=== PATIENT | female | born 1955 | race Caucasian/White ===

== ENCOUNTER 2018-04-10 14:48 | Inpatient (IN) ==
[2018-04-10] MEDS ORDERED: Ondansetron 4 MG/2 ML VIAL IVP ONE (15:15)
[2018-04-10] MEDS ORDERED: 0.9 % Sodium Chloride 1,000 ML IVC ONE (15:15)
--- NOTE | 2018-04-10 15:51 | Emergency Department Note ---
Disposition Clinical Impression: Pancolitis Abdominal pain Qualifiers: Abdominal location: unspecified location Qualified Code(s): R10.9 - Unspecified abdominal pain Diarrhea Qualifiers: Diarrhea type: unspecified type Qualified Code(s): R19.7 - Diarrhea, unspecified Leukocytosis Qualifiers: Leukocytosis type: unspecified Qualified Code(s): D72.829 - Elevated white blood cell count, unspecified Disposition: Admitted As Inpatient Condition: Good Time of Disposition: 16:46 Abdominal Pain HPI - General Chief Complaint: ED Abdominal Pain Stated Complaint: diarrhea since January Time Seen by Provider: 04/10/18 15:07 Source: patient, family () Mode of arrival: ambulatory Limitations: no limitations Nursing Notes Reviewed: Yes Vital Signs Reviewed: Yes - History of Present Illness HPI Narrative: 62-year-old female presents to the emergency department for diarrhea. She reports intermittent diarrhea over the past 3 months. It seems to be worse after she takes antibiotics. Her recent antibiotic regimen was over a week ago with ciprofloxacin for sinus infection. For the past 7 days she is been having loose watery stools up to 10 episodes. Today she is only had 4 episodes. She reports tactile fevers. Has been feeling more nauseated and complains of abdominal pain over the past week. No recent travel. No recent hospitalizations. She does notice blood when she wipes. Denies any urinary symptoms. She has not been evaluated for this in the past. They are concern for possible c. diff as they have looked it up. She also sees pain management and has been taking her Vicodin on a daily basis without any missed doses. Abdominal surgeries include 3 hernia repairs, hysterectomy, cholecystectomy and appendectomy. Pt Subjective Complaint: abdominal pain Pain Scale: 7 - Related Data Home Medications Medication Instructions Recorded Confirmed Albuterol Sulfate [Ventolin Hfa] 18 gm IH DAILY 10/19/17 11/04/17 Alendronate Sodium 70 mg PO DAILY 10/19/17 11/04/17 Atorvastatin [Lipitor] 10 mg PO HS 10/19/17 11/04/17 Carvedilol [Coreg] 25 mg PO BID 10/19/17 11/04/17 Cyclosporine [Restasis] 1 each OP DAILY 10/19/17 11/04/17 Ezetimibe [Zetia] 10 mg PO DAILY 10/19/17 11/04/17 Gabapentin [Neurontin] 300 mg PO HS 10/19/17 11/04/17 HydrOXYzine Pamoate [Vistaril] 50 mg PO DAILY 10/19/17 11/04/17 Hydrocodone Bit/Homatrop Me-Br 1 each PO 1-3XD PRN 10/19/17 11/04/17 [Hydrocodone-Homatropine 5-1.5] Latanoprost [Xalatan] 2.5 ml OP DAILY 10/19/17 11/04/17 Lisinopril 30 mg PO DAILY 10/19/17 11/04/17 Metoprolol [Lopressor] 25 mg PO BID 10/19/17 11/04/17 Neomycin/Polymyxin B Sulf/Hc 7.5 ml OP DAILY 10/19/17 11/04/17 [Rjggiztu-Dmna-Zy Eye Drops] Nortriptyline [Pamelor] 10 mg PO HS 10/19/17 11/04/17 Nystatin [Nystatin Suspension] 100,000 units PO QID 10/19/17 11/04/17 Hartwick-3 Fatty Acids [Fish Oil] 300 mg PO DAILY 10/19/17 11/04/17 Ticagrelor [Brilinta] 90 mg PO DAILY 10/19/17 11/04/17 Previous Rx's Medication Instructions Recorded Ondansetron HCl [Zofran] 4 mg PO Q8HR PRN #90 tab 10/19/17 Prochlorperazine Maleate 10 mg PO Q8HR #60 tablet 10/19/17 [Compazine] Ciprofloxacin [Cipro] 500 mg PO BID #14 tablet 01/15/18 Phenazopyridine HCl [Pyridium] 200 mg PO TID #6 tab 01/15/18 Allergies Allergy/AdvReac Type Severity Reaction Status Date / Time duloxetine [From Cymbalta] Allergy Drowsy Verified 10/19/17 11:34 iodine Allergy Hives Verified 10/19/17 11:34 morphine Allergy hallucinati Verified 10/19/17 11:34 ons pregabalin [From Lyrica] Allergy decreased Verified 10/19/17 11:34 awareness Hydromorphone [From Dilaudid] AdvReac Hypotension Verified 10/19/17 11:34 rosuvastatin [From Crestor] AdvReac Muscle Pain Verified 10/19/17 11:34 All systems ED: reviewed and negative except as stated. Review of Systems: As Per HPI Constitutional: Reports: fever, weakness. Denies: chills ENT ED: Denies: congestion Cardiovascular: Denies: chest pain Respiratory: Denies: cough, dyspnea Gastrointestinal: Reports: abdominal pain, nausea, vomiting, diarrhea, hematochezia. Denies: hematemesis, melena Genitourinary: Denies: dysuria, hematuria Musculoskeletal: Denies: back pain Integumentary: Denies: rash, abrasion Neurological: Reports: weakness. Denies: numbness, confusion Abdominal Pain PMH - Past Medical History Medical history: Reports: arthritis, cancer, COPD, fibromyalgia, GERD, hyperlipidemia, hypertension, other Female Surgical History: Reports: appendectomy, cholecystectomy, herniorrhaphy, hysterectomy Psychiatric history: Reports: no psych history - Social History Smoking status: Current every day smoker Alcohol use: Reports: none Drug use: Reports: none Physical Exam - General Limitations: no limitations General appearance: alert, in no apparent distress - Head Head exam: atraumatic, normocephalic, normal inspection - Eye Eye exam: Present: normal appearance, PERRL, EOMI - ENT ENT exam: normal exam, normal oropharynx, mucous membranes dry, normal external ear exam - Neck Neck exam: Present: normal inspection, full ROM, trachea midline - Chest Chest inspection: Present: normal inspection, symmetric chest wall rise - Respiratory Respiratory exam: Present: normal lung sounds bilaterally. Absent: respiratory distress - Cardiovascular Cardiovascular exam: Present: regular rate, normal rhythm, normal heart sounds. Absent: systolic murmur, diastolic murmur - Abdominal Exam Abdominal exam: Present: soft, tenderness, guarding, hyperactive bowel sounds. Absent: Non-Tender, distention, rebound, rigidity Abdominal tenderness: Present: diffuse - Extremities Exam Extremities exam: Present: normal inspection, full ROM. Absent: tenderness, pedal edema - Back Exam Back exam: Present: normal inspection, full ROM. Absent: tenderness, CVA tenderness (R), CVA tenderness (L) - Neurological Exam Neurological exam: Present: alert, oriented X3 - Psychiatric Psychiatric exam: Present: normal affect, normal mood - Skin Skin exam: Present: warm, dry, intact, pallor Course Course Narrative: Patient presents with intermittent diarrhea over the past 3 months worse after antibiotic treatment. Concern for possible c. diff infection. Will check labs including CT imaging to evaluate for possible toxic megacolon. Also check basic labs. IV fluids as the patient does appears slightly dry. Zofran for nausea. - Reevaluation(s) Reevaluation #1: Patient's white blood cell count 39. Her electrolytes are within normal limits. CT scan is pending. Suspect this is likely antibiotic induced c. diff. Will obtain lactate blood cultures and treat her with oral vancomycin as this is severe form given the significantly elevated white blood cell count. Patient will require admission. Time: 16:44 - Consultations Consultation #1: Spoke with on-call hospitalist dereck Jean Baptiste to admit for abd pain, diarrhea, concern for C.diff, pancolitis. No further orders at this time. No stool sample provided yet. Patient has been placed in contact precautions. Time: 18:08 Vital Signs Temperature 98.1 F 04/10/18 15:03 Pulse Rate 112 04/10/18 15:03 Respiratory Rate 20 04/10/18 15:03 Blood Pressure 115/74 04/10/18 15:03 O2 Sat by Pulse Oximetry 93 04/10/18 15:03 Temperature 98.1 F 04/10/18 15:03 Pulse Rate 112 04/10/18 15:03 Respiratory Rate 20 04/10/18 15:03 Blood Pressure 115/74 04/10/18 15:03 O2 Sat by Pulse Oximetry 93 04/10/18 15:03 Oxygen Delivery Oxygen Delivery Room Air Abdominal Pain - MDM Narrative Medical decision making narrative: Patient was discussed with my attending physician who agrees with ED management and final disposition. They independently evaluated the patient. Please refer to their attestation to this encounter for additional information. This note was generated by [employer] voice recognition software and as a result grammatical or spelling errors may occur using this program. - Medical Records Medical records reviewed: Yes I reviewed the patient's medical records. - Lab Data Lab results reviewed: Yes I reviewed the patient's lab results. Result diagrams: 04/10/18 15:15 04/10/18 15:15 Lab Results 04/10/18 04/10/18 04/10/18 Range/Units 15:15 15:15 16:16 WBC 39.0 H* (4.3-11.1) K/mcL RBC 4.94 (3.82-4.97) M/mcL Hgb 15.1 (11.5-15.4) g/dL Hct 43.6 (35.3-44.9) % MCV 88.3 (83.0-100.0) fL MCH 30.6 (28.0-33.3) pg MCHC 34.6 (31.6-35.5) g/dL RDW 13.9 (11.5-14.5) % Plt Count 257 (140-400) K/mcL MPV 10.0 (9.4-12.4) fL Immature Gran % 1.3 (0-4) % Seg Neutrophils % 86.9 % Lymphocytes % 5.5 % Monocytes % 5.7 % Eosinophils % 0.2 % Basophils % 0.4 % Neutrophils # 33.9 H (1.6-8.9) K/mcL Lymphocytes # 2.2 (0.6-4.6) K/mcL Monocytes # 2.2 H (0.0-1.3) K/mcL Eosinophils # 0.1 (0.0-0.6) K/mcL Basophils # 0.2 (0.0-0.2) K/mcL Platelet Estimate Normal (Normal) Sodium 137 (136-145) mEq/L Potassium 3.4 L (3.5-5.1) mEq/L Chloride 103 (98-107) mEq/L Carbon Dioxide 24 (23-29) mEq/L BUN 17 (8-23) mg/dL Creatinine 0.97 (0.60-1.20) mg/dL Est GFR ( Amer) > 60 (> 60) Est GFR (Non-Af Amer) 58 L (> 60) BUN/Creatinine Ratio 18 (6-26) Glucose 109 H (70-105) mg/dL Calculated Osmolality 286 (280-300) Calcium 8.7 (8.6-10.3) mg/dL Total Bilirubin 0.8 (0.3-1.0) mg/dL Direct Bilirubin 0.2 (0.0-0.2) mg/dL Indirect Bilirubin 0.6 (0.0-1.2) mg/dL AST 12 L (13-39) Units/L ALT 13 (7-52) Units/L Alkaline Phosphatase 82 (34-104) Units/L Serum Total Protein 6.6 (6.4-8.9) g/dL Albumin 3.2 L (3.5-5.7) g/dL Globulin 3.4 (2.4-3.5) g/dL Albumin/Globulin Ratio 0.9 L (1.1-2.2) Lipase < 3 L (11-82) Units/L Urine Color Dark Yellow (Yellow) Urine Clarity Slightly Hazy (Clear) Urine pH 6.0 (5.0-8.0) pH Units Ur Specific Barrett 1.017 (1.010-1.025) Urine Protein >=300 H (Neg-Trace) mg/dL Urine Glucose (UA) Normal (Normal) mg/dL Urine Ketones Trace H (Negative) mg/dL Urine Blood Large H (Negative) Urine Nitrite Negative (Negative) Urine Bilirubin Small H (Negative) Urine Urobilinogen Normal (Normal) mg/dL Ur Leukocyte Esterase Trace H (Negative) Urine Microscopic RBC TNTC H (0-3) per hpf Urine Microscopic WBC 5-15 H (0-3) per hpf Ur Squamous Epith Cells Many H (None-Few) per lpf Ur Transition Epith Cell Few (None-Few) per hpf Ur Renal Epithelial Cell Few (None-Few) per hpf Urine Bacteria None Seen (None-Few) per hpf Hyaline Casts Few (None-Few) per lpf Granular Casts Few H (None Seen) per lpf Ur Culture Indicated? NO. A (NO) Specimen Rejected 04/10/18 Range/Units 17:06 WBC (4.3-11.1) K/mcL RBC (3.82-4.97) M/mcL Hgb (11.5-15.4) g/dL Hct (35.3-44.9) % MCV (83.0-100.0) fL MCH (28.0-33.3) pg MCHC (31.6-35.5) g/dL RDW (11.5-14.5) % Plt Count (140-400) K/mcL MPV (9.4-12.4) fL Immature Gran % (0-4) % Seg Neutrophils % % Lymphocytes % % Monocytes % % Eosinophils % % Basophils % % Neutrophils # (1.6-8.9) K/mcL Lymphocytes # (0.6-4.6) K/mcL Monocytes # (0.0-1.3) K/mcL Eosinophils # (0.0-0.6) K/mcL Basophils # (0.0-0.2) K/mcL Platelet Estimate (Normal) Sodium (136-145) mEq/L Potassium (3.5-5.1) mEq/L Chloride (98-107) mEq/L Carbon Dioxide (23-29) mEq/L BUN (8-23) mg/dL Creatinine (0.60-1.20) mg/dL Est GFR ( Amer) (> 60) Est GFR (Non-Af Amer) (> 60) BUN/Creatinine Ratio (6-26) Glucose (70-105) mg/dL Calculated Osmolality (280-300) Calcium (8.6-10.3) mg/dL Total Bilirubin (0.3-1.0) mg/dL Direct Bilirubin (0.0-0.2) mg/dL Indirect Bilirubin (0.0-1.2) mg/dL AST (13-39) Units/L ALT (7-52) Units/L Alkaline Phosphatase (34-104) Units/L Serum Total Protein (6.4-8.9) g/dL Albumin (3.5-5.7) g/dL Globulin (2.4-3.5) g/dL Albumin/Globulin Ratio (1.1-2.2) Lipase (11-82) Units/L Urine Color (Yellow) Urine Clarity (Clear) Urine pH (5.0-8.0) pH Units Ur Specific Barrett (1.010-1.025) Urine Protein (Neg-Trace) mg/dL Urine Glucose (UA) (Normal) mg/dL Urine Ketones (Negative) mg/dL Urine Blood (Negative) Urine Nitrite (Negative) Urine Bilirubin (Negative) Urine Urobilinogen (Normal) mg/dL Ur Leukocyte Esterase (Negative) Urine Microscopic RBC (0-3) per hpf Urine Microscopic WBC (0-3) per hpf Ur Squamous Epith Cells (None-Few) per lpf Ur Transition Epith Cell (None-Few) per hpf Ur Renal Epithelial Cell (None-Few) per hpf Urine Bacteria (None-Few) per hpf Hyaline Casts (None-Few) per lpf Granular Casts (None Seen) per lpf Ur Culture Indicated? (NO) Specimen Rejected Hemolyzed - Radiology Data Radiology results reviewed: Yes I reviewed the patient's radiology results. Abdomen/Pelvis CT 04/10/18 15:39 IMPRESSION: Diffuse colonic wall thickening and pericolonic inflammatory changes is consistent with pancolitis. Findings are likely infectious or inflammatory in etiology. D/ / 04/10/2018 17:14:00 Duane Su MD / melania Interpreting Provider: Duane Su MD Attestation Statement - Attestation Attestation: I, Ankur Du DO, examined this patient [id number] and my medical decision-making was reviewed with Rufus Osullivan DO , Resident Physician. I agree with the documented findings, disposition and treatment plan as described except to the extent set forth below. Please see my progress notes for details.
--- NOTE | 2018-04-10 16:08 | Emergency Department Note ---
Disposition Clinical Impression: Abdominal pain Qualifiers: Abdominal location: unspecified location Qualified Code(s): R10.9 - Unspecified abdominal pain Diarrhea Qualifiers: Diarrhea type: unspecified type Qualified Code(s): R19.7 - Diarrhea, unspecified Leukocytosis Qualifiers: Leukocytosis type: unspecified Qualified Code(s): D72.829 - Elevated white blood cell count, unspecified Disposition: Admitted As Inpatient Condition: Good Referrals: Amador Jennings MD [Primary Care Provider] - Forms: ED Satisfaction Letter, Work/School Release Time of Disposition: 18:09 General Adult HPI - General Chief complaint: ED Abdominal Pain Stated complaint: diarrhea since January Time Seen by Provider: 04/10/18 15:07 Source: patient, family () Mode of arrival: ambulatory Limitations: no limitations - History of Present Illness Pain Scale: 7 - Related Data Home Medications Medication Instructions Recorded Confirmed Albuterol Sulfate [Ventolin Hfa] 18 gm IH DAILY 10/19/17 11/04/17 Alendronate Sodium 70 mg PO DAILY 10/19/17 11/04/17 Atorvastatin [Lipitor] 10 mg PO HS 10/19/17 11/04/17 Carvedilol [Coreg] 25 mg PO BID 10/19/17 11/04/17 Cyclosporine [Restasis] 1 each OP DAILY 10/19/17 11/04/17 Ezetimibe [Zetia] 10 mg PO DAILY 10/19/17 11/04/17 Gabapentin [Neurontin] 300 mg PO HS 10/19/17 11/04/17 HydrOXYzine Pamoate [Vistaril] 50 mg PO DAILY 10/19/17 11/04/17 Hydrocodone Bit/Homatrop Me-Br 1 each PO 1-3XD PRN 10/19/17 11/04/17 [Hydrocodone-Homatropine 5-1.5] Latanoprost [Xalatan] 2.5 ml OP DAILY 10/19/17 11/04/17 Lisinopril 30 mg PO DAILY 10/19/17 11/04/17 Metoprolol [Lopressor] 25 mg PO BID 10/19/17 11/04/17 Neomycin/Polymyxin B Sulf/Hc 7.5 ml OP DAILY 10/19/17 11/04/17 [Hkisolvy-Ihho-Qr Eye Drops] Nortriptyline [Pamelor] 10 mg PO HS 10/19/17 11/04/17 Nystatin [Nystatin Suspension] 100,000 units PO QID 10/19/17 11/04/17 [place]-3 Fatty Acids [Fish Oil] 300 mg PO DAILY 10/19/17 11/04/17 Ticagrelor [Brilinta] 90 mg PO DAILY 10/19/17 11/04/17 Previous Rx's Medication Instructions Recorded Ondansetron HCl [Zofran] 4 mg PO Q8HR PRN #90 tab 10/19/17 Prochlorperazine Maleate 10 mg PO Q8HR #60 tablet 10/19/17 [Compazine] Ciprofloxacin [Cipro] 500 mg PO BID #14 tablet 01/15/18 Phenazopyridine HCl [Pyridium] 200 mg PO TID #6 tab 01/15/18 Allergies Allergy/AdvReac Type Severity Reaction Status Date / Time duloxetine [From Cymbalta] Allergy Drowsy Verified 10/19/17 11:34 iodine Allergy Hives Verified 10/19/17 11:34 morphine Allergy hallucinati Verified 10/19/17 11:34 ons pregabalin [From Lyrica] Allergy decreased Verified 10/19/17 11:34 awareness Hydromorphone [From Dilaudid] AdvReac Hypotension Verified 10/19/17 11:34 rosuvastatin [From Crestor] AdvReac Muscle Pain Verified 10/19/17 11:34 Constitutional: Reports: fever, weakness. Denies: chills ENT ED: Denies: congestion Cardiovascular: Denies: chest pain Respiratory: Denies: cough, dyspnea Gastrointestinal: Reports: abdominal pain, nausea, vomiting, diarrhea, hematochezia. Denies: hematemesis, melena Genitourinary: Denies: dysuria, hematuria Musculoskeletal: Denies: back pain Integumentary: Denies: rash, abrasion Neurological: Reports: weakness. Denies: numbness, confusion Past Medical History - Past Medical History Medical history: Reports: arthritis, cancer, COPD, fibromyalgia, GERD, hyperlipidemia, hypertension, other Surgical history: Reports: hysterectomy Psychiatric history: Reports: no psych history - Social History Smoking Status: Current every day smoker Smokeless Tobacco Status: No Alcohol use: Reports: none Drug use: Reports: none Physical Exam - General Limitations: no limitations General appearance: alert, in no apparent distress Course Vital Signs Temperature 98.1 F 04/10/18 15:03 Pulse Rate 112 04/10/18 15:03 Respiratory Rate 20 04/10/18 15:03 Blood Pressure 115/74 04/10/18 15:03 O2 Sat by Pulse Oximetry 93 04/10/18 15:03 Temperature 98.1 F 04/10/18 15:03 Pulse Rate 112 04/10/18 15:03 Respiratory Rate 20 04/10/18 15:03 Blood Pressure 115/74 04/10/18 15:03 O2 Sat by Pulse Oximetry 93 04/10/18 15:03 Oxygen Delivery Oxygen Delivery Room Air Medical Decision Making - Lab Data Result diagrams: 04/10/18 15:15 04/10/18 15:15 Lab Results 04/10/18 04/10/18 04/10/18 Range/Units 15:15 15:15 16:16 WBC 39.0 H* (4.3-11.1) K/mcL RBC 4.94 (3.82-4.97) M/mcL Hgb 15.1 (11.5-15.4) g/dL Hct 43.6 (35.3-44.9) % MCV 88.3 (83.0-100.0) fL MCH 30.6 (28.0-33.3) pg MCHC 34.6 (31.6-35.5) g/dL RDW 13.9 (11.5-14.5) % Plt Count 257 (140-400) K/mcL MPV 10.0 (9.4-12.4) fL Immature Gran % 1.3 (0-4) % Seg Neutrophils % 86.9 % Lymphocytes % 5.5 % Monocytes % 5.7 % Eosinophils % 0.2 % Basophils % 0.4 % Neutrophils # 33.9 H (1.6-8.9) K/mcL Lymphocytes # 2.2 (0.6-4.6) K/mcL Monocytes # 2.2 H (0.0-1.3) K/mcL Eosinophils # 0.1 (0.0-0.6) K/mcL Basophils # 0.2 (0.0-0.2) K/mcL Platelet Estimate Normal (Normal) Sodium 137 (136-145) mEq/L Potassium 3.4 L (3.5-5.1) mEq/L Chloride 103 (98-107) mEq/L Carbon Dioxide 24 (23-29) mEq/L BUN 17 (8-23) mg/dL Creatinine 0.97 (0.60-1.20) mg/dL Est GFR ( Amer) > 60 (> 60) Est GFR (Non-Af Amer) 58 L (> 60) BUN/Creatinine Ratio 18 (6-26) Glucose 109 H (70-105) mg/dL Calculated Osmolality 286 (280-300) Calcium 8.7 (8.6-10.3) mg/dL Total Bilirubin 0.8 (0.3-1.0) mg/dL Direct Bilirubin 0.2 (0.0-0.2) mg/dL Indirect Bilirubin 0.6 (0.0-1.2) mg/dL AST 12 L (13-39) Units/L ALT 13 (7-52) Units/L Alkaline Phosphatase 82 (34-104) Units/L Serum Total Protein 6.6 (6.4-8.9) g/dL Albumin 3.2 L (3.5-5.7) g/dL Globulin 3.4 (2.4-3.5) g/dL Albumin/Globulin Ratio 0.9 L (1.1-2.2) Lipase < 3 L (11-82) Units/L Urine Color Dark Yellow (Yellow) Urine Clarity Slightly Hazy (Clear) Urine pH 6.0 (5.0-8.0) pH Units Ur Specific [place] 1.017 (1.010-1.025) Urine Protein >=300 H (Neg-Trace) mg/dL Urine Glucose (UA) Normal (Normal) mg/dL Urine Ketones Trace H (Negative) mg/dL Urine Blood Large H (Negative) Urine Nitrite Negative (Negative) Urine Bilirubin Small H (Negative) Urine Urobilinogen Normal (Normal) mg/dL Ur Leukocyte Esterase Trace H (Negative) Urine Microscopic RBC TNTC H (0-3) per hpf Urine Microscopic WBC 5-15 H (0-3) per hpf Ur Squamous Epith Cells Many H (None-Few) per lpf Ur Transition Epith Cell Few (None-Few) per hpf Ur Renal Epithelial Cell Few (None-Few) per hpf Urine Bacteria None Seen (None-Few) per hpf Hyaline Casts Few (None-Few) per lpf Granular Casts Few H (None Seen) per lpf Ur Culture Indicated? NO. A (NO) Specimen Rejected 04/10/18 Range/Units 17:06 WBC (4.3-11.1) K/mcL RBC (3.82-4.97) M/mcL Hgb (11.5-15.4) g/dL Hct (35.3-44.9) % MCV (83.0-100.0) fL MCH (28.0-33.3) pg MCHC (31.6-35.5) g/dL RDW (11.5-14.5) % Plt Count (140-400) K/mcL MPV (9.4-12.4) fL Immature Gran % (0-4) % Seg Neutrophils % % Lymphocytes % % Monocytes % % Eosinophils % % Basophils % % Neutrophils # (1.6-8.9) K/mcL Lymphocytes # (0.6-4.6) K/mcL Monocytes # (0.0-1.3) K/mcL Eosinophils # (0.0-0.6) K/mcL Basophils # (0.0-0.2) K/mcL Platelet Estimate (Normal) Sodium (136-145) mEq/L Potassium (3.5-5.1) mEq/L Chloride (98-107) mEq/L Carbon Dioxide (23-29) mEq/L BUN (8-23) mg/dL Creatinine (0.60-1.20) mg/dL Est GFR ( Amer) (> 60) Est GFR (Non-Af Amer) (> 60) BUN/Creatinine Ratio (6-26) Glucose (70-105) mg/dL Calculated Osmolality (280-300) Calcium (8.6-10.3) mg/dL Total Bilirubin (0.3-1.0) mg/dL Direct Bilirubin (0.0-0.2) mg/dL Indirect Bilirubin (0.0-1.2) mg/dL AST (13-39) Units/L ALT (7-52) Units/L Alkaline Phosphatase (34-104) Units/L Serum Total Protein (6.4-8.9) g/dL Albumin (3.5-5.7) g/dL Globulin (2.4-3.5) g/dL Albumin/Globulin Ratio (1.1-2.2) Lipase (11-82) Units/L Urine Color (Yellow) Urine Clarity (Clear) Urine pH (5.0-8.0) pH Units Ur Specific [place] (1.010-1.025) Urine Protein (Neg-Trace) mg/dL Urine Glucose (UA) (Normal) mg/dL Urine Ketones (Negative) mg/dL Urine Blood (Negative) Urine Nitrite (Negative) Urine Bilirubin (Negative) Urine Urobilinogen (Normal) mg/dL Ur Leukocyte Esterase (Negative) Urine Microscopic RBC (0-3) per hpf Urine Microscopic WBC (0-3) per hpf Ur Squamous Epith Cells (None-Few) per lpf Ur Transition Epith Cell (None-Few) per hpf Ur Renal Epithelial Cell (None-Few) per hpf Urine Bacteria (None-Few) per hpf Hyaline Casts (None-Few) per lpf Granular Casts (None Seen) per lpf Ur Culture Indicated? (NO) Specimen Rejected Hemolyzed Attestation Statement - Attestation Attestation: I, Ankur Du DO, examined this patient [id number] and my medical decision-making was reviewed with Rufus Osullivan DO , Resident Physician. I agree with the documented findings, disposition and treatment plan as described except to the extent set forth below. Please see my progress notes for details. 62-year-old female presents to the emergency room with complaint of diarrhea. Patient has noticed the diarrhea persistently getting worse over the last several weeks. She has been on 3 different antibiotics to be treated for bronchitis and then a sinus infection. Patient is been following with her primary care provider. Currently she denies any fevers, chills, nausea, vomiting. She does have diarrhea multiple times throughout the day. She denies any chest pain or shortness of breath. Has not traveled outside the country. She has not eaten any abnormal places. She does not notice any discoloration to her skin. She denies any falls trauma or injury. Denies any new medications. Vital signs in presentation are stable. Patient is alert she is oriented she answers questions appropriately. And he will let us during my physical exam she describes excruciating pain. Patient's head is atraumatic pupils are equal round reactive. Extraocular muscles are intact. Oropharynx is patent. Trachea is midline. Lungs are clear to auscultation bilaterally. She describes bilateral mastoid and frontal sinus pain to percussion. Heart is regular. Abdomen is soft but she does have guarding at this point. When she is distracted she does not seem to describe the pain as nearly as acute as it was when she was paying attention to my exam. Denies any vaginal discharge or bleeding. She has had a total hysterectomy. She does have bladder prolapse. She still is been urinating without any difficulty. Denies any burning with u rination or blood in her urine or stool. Detailed workup to be completed with laboratory workup, fluid resuscitation, nausea medication and then CT imaging of the abdomen. Urinalysis will also be collected. Patient is otherwise clinically stable this time. See detailed documentation of the physical exam, medical intervention, medical decision-making and disposition in the resident physician's note. No critical care provider the patient's treatment course at this time. 1745 Patient is found to have significantly elevated white blood cell count. CT scan confirms pancolitis across the abdominal wall. This is consistent at least concerning for Clostridium difficile infection after all the antibiotic the patient is benign. C. difficile precautions have been established and the patient has a stool sample being sent for evaluation. Patient will be admitted for symptomatic control and medications. First dose of oral vancomycin has been given here in the emergency department. We will monitor her closely until admission processes established. 1800 Patient was discussed with the hospitalist. No other recommendations or concerns at this time. Patient will be admitted for continuation of care. Will monitor here in the emergency room until admission process is completed.
[2018-04-10 16:21] LABS: Basophils % 0.4 %; Eosinophils % 0.2 %; Lymphocytes % 5.5 %
[2018-04-10 16:23] LABS: Basophils # 0.2 K/mcL (0.0-0.2); Eosinophils # 0.1 K/mcL (0.0-0.6); Hematocrit 43.6 % (35.3-44.9); Hemoglobin 15.1 g/dL (11.5-15.4); Immature Granulocytes % 1.3 % (0-4); Mean Corpuscular HGB Conc 34.6 g/dL (31.6-35.5); Mean Corpuscular Hemoglobin 30.6 pg (28.0-33.3); Mean Corpuscular Volume 88.3 fL (83.0-100.0); Monocytes # 2.2 K/mcL (0.0-1.3); Monocytes % 5.7 %; Platelet Count 257 K/mcL (140-400); Red Blood Count 4.94 M/mcL (3.82-4.97); Red Cell Distribution Width 13.9 % (11.5-14.5); Segmented Neutrophils % 86.9 %
[2018-04-10 16:29] LABS: Bilirubin,Urine Small (Negative); Blood,Urine Large (Negative); Color,Urine Dark Yellow (Yellow); Glucose,Urine (UA) Normal (Normal); Ketones,Urine Trace mg/dL (Negative); Leukocyte Esterase,Urine Trace (Negative); Nitrite,Urine Negative (Negative); Protein,Urine >=300 mg/dL (Neg-Trace); Specific Gravity,Urine 1.017 (1.010-1.025); Urobilinogen,Urine Normal (Normal)
[2018-04-10 16:31] LABS: Bacteria,Urine None Seen per hpf (None-Few); RBC,Urine TNTC per hpf (0-3); Squamous Epithelial Cell,Urine Many per lpf (None-Few)
[2018-04-10 16:36] LABS: Clarity,Urine Slightly Hazy (Clear)
[2018-04-10 16:38] LABS: Alanine Aminotransferase 13 Units/L (7-52); Albumin 3.2 g/dL (3.5-5.7); Albumin/Globulin Ratio 0.9 (1.1-2.2); Alkaline Phosphatase 82 Units/L (34-104); Aspartate Amino Transferase 12 Units/L (13-39); BUN/Creatinine Ratio 18 (6-26); Bilirubin,Direct 0.2 mg/dL (0.0-0.2); Bilirubin,Indirect 0.6 mg/dL (0.0-1.2); Bilirubin,Total 0.8 mg/dL (0.3-1.0); Blood Urea Nitrogen 17 mg/dL (8-23); Calcium 8.7 mg/dL (8.6-10.3); Carbon Dioxide 24 mEq/L (23-29); Chloride 103 mEq/L (98-107); Globulin 3.4 g/dL (2.4-3.5); Glucose 109 mg/dL (70-105); Lipase < 3 Units/L (11-82); Osmolality,Calculated 286 (280-300); Potassium 3.4 mEq/L (3.5-5.1); Sodium 137 mEq/L (136-145); Total Protein 6.6 g/dL (6.4-8.9); eGFR For Non-African Americans 58 (> 60)
[2018-04-10 16:39] LABS: Lymphocytes # 2.2 K/mcL (0.6-4.6); Neutrophils # 33.9 K/mcL (1.6-8.9)
[2018-04-10] MEDS ORDERED: Vancomycin Oral Soln 125 MG/2.5 ML UDC PO ONE (16:43)
[2018-04-10 16:49] LABS: Platelet Estimate Normal (Normal)
[2018-04-10 17:03] LABS: Granular Casts,Urine Few per lpf (None Seen); Hyaline Casts,Urine Few per lpf (None-Few); Renal Epithelial Cells,Urine Few per hpf (None-Few); Transitional Epi Cells,Urine Few per hpf (None-Few)
[2018-04-10] MEDS ORDERED: Acetaminophen 325 MG TABLET PO PRN (20:36)
[2018-04-10] MEDS ORDERED: Ondansetron 4 MG/2 ML VIAL IVP PRN (20:45)
[2018-04-10] MEDS ORDERED: Ketorolac 30 MG/ML VIAL IVP PRN (20:45)
[2018-04-10] MEDS ORDERED: Ketorolac 30 MG/ML VIAL IVP ONE (20:45)
[2018-04-10] MEDS ORDERED: Mag Hydrox/Al Hydrox/Simeth 30 ML UDC PO PRN (20:47)
[2018-04-10] MEDS ORDERED: Ondansetron ODT 4 MG TAB.RAPDIS PO PRN (20:59)
[2018-04-10] MEDS: Gabapentin 100 MG CAPSULE PO SCH (21:55)
[2018-04-10] MEDS: hydrOXYzine pamoate 25 MG CAPSULE PO SCH (21:56)
[2018-04-10] MEDS: *HR* Heparin 5,000 UNIT/ML VIAL SQ SCH (21:57)
[2018-04-10] MEDS: Ringers Solution, Lactated 1,000 ML IVC SCH ×2 (21:58→23:15)
[2018-04-10] MEDS: Vancomycin Oral Soln 125 MG/2.5 ML UDC PO SCH (22:18)
[2018-04-10] MEDS: Nicotine 14 MG PATCH.TD24 TD SCH (22:18)
--- NOTE | 2018-04-10 23:20 | Internal Med History&Physical ---
Date of Encounter: 04/10/18 Time of Encounter: 23:18 Internal Medicine - H&P: HPI Chief complaint: Diarrhea Admitted From: Home Plans for Post Hospital Care: Home History of present illness: Ruma Price is a 62 year old woman with a history of rheumatoid arthritis and systemic lupus erythematosus who presents to the ER with complaint of diarrhea. She reports diarrhea on and off for the past 3 months which commenced after a course of antibiotics she took for parotitis. More recently she has been treated for sinusitis with multiple antibiotic courses and for the past 3 days noticed an exacerbation in her diuretic depositions now having abdominal cramping, fever and chills. She describes diarrhea as watery in consistency and yellow in color. She acknowledges having taken ciprofloxacin and amoxicillin clavulanate recently but states there was a third which she cannot remember. In the ER she was seen to have a white count of 39,000, tachycardic and has been febrile. She was started on oral vancomycin due to concern for C. difficile associated diarrhea. Unfortunately she was not able to produce any stool stating that she took multiple tablets of Imodium and hydrocodone therefore her last bowel movement was before arrival to the ER. Past Med Surg Social Fam HX - Past Medical History Medical history: arthritis, cancer, COPD, fibromyalgia, GERD, hyperlipidemia, hypertension, other Additional medical history: Osteoarthritis, lupus, chronic cellulitis, le edema, narcolepsy, sleep apnea, trigeminal neualgia, palpitations, diastolic dysfunction, hernia, vulva cancer Psychiatric history: no psych history - Past Surgical History Surgical History: hysterectomy Additional surgical history: right breast bx. left ear sx. cal. hernia repair. vaginal bx - Social History Smoking Status: Current every day smoker Smokeless Tobacco Status: No Alcohol use: none Drug use: none - Family History Mother Living Status: Hx Family Cardiac Disorders: Yes Hx Family Respiratory Disorders: Yes Hx Family Cancer: No Hx Family GI Disorders: No Hx Family Endocrine Disorder: No Hx Family Neuromuscular Disorders: No Hx Family Neurologic Disorders: No Hx Family HEENT Disorders: No Hx Family Autoimmune Disorders: No Internal Medicine - H&P: Meds Albuterol Sulfate [Ventolin Hfa] 18 gm IH DAILY PRN 10/19/17 [History] Cyclosporine [Restasis] 1 each OP DAILY 10/19/17 [History] Gabapentin [Neurontin] 200 mg PO HS 10/19/17 [History] HydrOXYzine Pamoate [Vistaril] 50 mg PO HS 10/19/17 [History] Hydrocodone Bit/Homatrop Me-Br [Hydrocodone-Homatropine 5-1.5] 1 each PO 1-3XD PRN 10/19/17 [History] Latanoprost [Xalatan] 2.5 ml OP DAILY 10/19/17 [History] Lisinopril 30 mg PO DAILY 10/19/17 [History] Metoprolol [Lopressor] 25 mg PO BID 10/19/17 [History] Neomycin/Polymyxin B Sulf/Hc [Akxqfugu-Ypoq-Ah Eye Drops] 7.5 ml OP DAILY 10/19/17 [History] [place]-3 Fatty Acids [Fish Oil] 300 mg PO DAILY 10/19/17 [History] Ondansetron HCl [Zofran] 4 mg PO Q8HR PRN #90 tab 10/19/17 [Rx] Esomeprazole Magnesium [Nexium] 40 mg PO 04/10/18 [History] Esomeprazole Magnesium [Nexium] 40 mg PO 04/10/18 [History] Allergy/AdvReac Type Severity Reaction Status Date / Time duloxetine [From Cymbalta] Allergy Drowsy Verified 10/19/17 11:34 iodine Allergy Hives Verified 10/19/17 11:34 morphine Allergy hallucinati Verified 10/19/17 11:34 ons pregabalin [From Lyrica] Allergy decreased Verified 10/19/17 11:34 awareness Hydromorphone [From Dilaudid] AdvReac Hypotension Verified 10/19/17 11:34 rosuvastatin [From Crestor] AdvReac Muscle Pain Verified 10/19/17 11:34 All Systems PM: A 10-system review of systems was performed and is negative for pertinent findings except as documented above in the HPI. - Constitutional Vitals: Temp Pulse Resp BP Pulse Ox 99.3 F 125 15 118/69 91 04/10/18 21:51 04/10/18 21:51 04/10/18 21:51 04/10/18 21:51 04/10/18 21:51 Exam: Vitals: Reviewed General: In notable distress with antalgic posturing. Skin: Warm and supple. HEENT: Moist mucous membranes. No conjunctivae pallor. Neck: No lymphadenopathy. No JVD. No carotid bruits. No palpable thyroid. Chest: Normal thoracic expansion. Normal breath sounds. Clear to auscultation. Heart: Normal S1 & S2; rhythmic. No rubs or murmurs. Abdomen: Mildly distended with diffuse tenderness to palpation and increased bowel sounds. Extremities: No clubbing, cyanosis or edema. No calf tenderness. Normal distal pulses. Neurological: Awake, alert and oriented to person, place and time. No focal deficits. Psych: Affect appropriate. Internal Med - H&P Results - Labs CBC & Chem 7: 04/10/18 15:15 04/10/18 15:15 Labs: Short CBC 04/10/18 Range/Units 15:15 WBC 39.0 H* (4.3-11.1) K/mcL Hgb 15.1 (11.5-15.4) g/dL Hct 43.6 (35.3-44.9) % Plt Count 257 (140-400) K/mcL Neutrophils # 33.9 H (1.6-8.9) K/mcL BMP 04/10/18 15:15 Sodium 137 Potassium 3.4 L Chloride 103 Carbon Dioxide 24 BUN 17 Creatinine 0.97 Glucose 109 H Calcium 8.7 Liver Function 04/10/18 Range/Units 15:15 Total Bilirubin 0.8 (0.3-1.0) mg/dL Direct Bilirubin 0.2 (0.0-0.2) mg/dL AST 12 L (13-39) Units/L ALT 13 (7-52) Units/L Alkaline Phosphatase 82 (34-104) Units/L Albumin 3.2 L (3.5-5.7) g/dL Urine 04/10/18 Range/Units 16:16 Urine Color Dark Yellow (Yellow) Urine Clarity Slightly Hazy (Clear) Urine pH 6.0 (5.0-8.0) pH Units Ur Specific [place] 1.017 (1.010-1.025) Urine Protein >=300 H (Neg-Trace) mg/dL Urine Glucose (UA) Normal (Normal) mg/dL - Impressions ITS Impressions Abdomen/Pelvis CT 04/10/18 15:39 IMPRESSION: Diffuse colonic wall thickening and pericolonic inflammatory changes is consistent with pancolitis. Findings are likely infectious or inflammatory in etiology. D/ / 04/10/2018 17:14:00 Duane Su MD / melania Interpreting Provider: Duane Su MD - Assessment and plan (1) Diarrhea Current Visit: Yes Status: Acute Assessment and plan: High concern for C.diff associated diarrhea given the high leukocytosis and recent plethora of antibiotics used recently. Her CT scan shows signs of bella- colitis. Unfortunately she took anti-motility agents as well as opiates which can lead to a toxic megacolon from the lacking peristalsis. Will avoid these medications for now and await a stool sample. A culture and comprehensive GI panel in addition to C.diff assay is warranted given the long-standing history of diarrhea she reports. Will place on oral vancomycin and IV metronidazole given the CT findings. Qualifiers: Diarrhea type: presumed infectious Qualified Code(s): R19.7 - Diarrhea, unspecified (2) Sepsis Current Visit: Yes Status: Acute Assessment and plan: As evidenced by tachycardia, fever and leukocytosis; secondary to gastronintestinal infection. Will fluid resuscitate aggressively and continue to monitor. Blood cultures will be obtained. Lactate within normal limits. Qualifiers: Sepsis type: sepsis due to unspecified organism Qualified Code(s): A41.9 - Sepsis, unspecified organism (3) Hypertension Current Visit: No Status: Chronic Assessment and plan: Resume home medications. Qualifiers: Hypertension type: essential hypertension Qualified Code(s): I10 - Essential (primary) hypertension (4) Smoker Current Visit: Yes Status: Acute Assessment and plan: Nicotine patch provided. - Time Spent With Patient Total time spent is greater than 50% in coordination of care (as documented) at patient's floor/unit and/or counseling patient: Greater than 35 minutes
[2018-04-10] MEDS: MetroNIDAZOLE 500 MG/100 ML 500 MG/100 ML BAG IVPB SCH (23:50)
[2018-04-10] MEDS: 0.9 % Sodium Chloride 1,000 ML IVC SCH (23:52)
[2018-04-11 02:28] LABS: Adenovirus F 40/41 PCR Not detected (Not detect); Astrovirus PCR Not detected (Not detect); Campylobacter by PCR Not detected (Not detect); Cryptosporidium by PCR Not detected (Not detect); Cyclospora cayetanensis PCR Not detected (Not detect); E. coli O157 by PCR Not detected (Not detect); Entamoeba histolytica PCR Not detected (Not detect); Enteroaggregative E.coli(EAEC) Not detected (Not detect); Enteropathogenic E.coli(EPEC) Not detected (Not detect); Enterotoxigenic E.coli (ETEC) Not detected (Not detect); Giardia lamblia PCR Not detected (Not detect); Norovirus GI/GII PCR Not detected (Not detect); Plesiomonas shigelloides PCR Not detected (Not detect); Rotavirus A PCR Not detected (Not detect); Salmonella PCR Not detected (Not detect); Sapovirus PCR Not detected (Not detect); Shig/EnteroinvasiveE coli EIEC Not detected (Not detect); Shigalike tox-prod E coli STEC Not detected (Not detect); Vibrio PCR Not detected (Not detect); Vibrio cholerae PCR Not detected (Not detect); Yersinia enterocolitica PCR Not detected (Not detect)
[2018-04-11 02:30] LABS: C.difficile Toxin A/B Gene PCR DETECTED (Not detect)
[2018-04-11] MEDS: *HR* Heparin 5,000 UNIT/ML VIAL SQ SCH ×3 (06:01→22:30)
[2018-04-11] MEDS: MetroNIDAZOLE 500 MG/100 ML 500 MG/100 ML BAG IVPB SCH ×2 (07:45→15:38)
[2018-04-11 07:54] LABS: Basophils % 0.2 %; Eosinophils % 0.4 %
[2018-04-11 07:56] LABS: Basophils # 0.1 K/mcL (0.0-0.2); Eosinophils # 0.1 K/mcL (0.0-0.6); Hematocrit 36.2 % (35.3-44.9); Hemoglobin 12.2 g/dL (11.5-15.4); Immature Granulocytes % 0.8 % (0-4); Lymphocytes % 6.4 %; Mean Corpuscular HGB Conc 33.7 g/dL (31.6-35.5); Mean Corpuscular Volume 88.9 fL (83.0-100.0); Mean Platelet Volume 10.1 fL (9.4-12.4); Monocytes % 4.9 %; Neutrophils # 27.5 K/mcL (1.6-8.9); Platelet Count 224 K/mcL (140-400); Red Blood Count 4.07 M/mcL (3.82-4.97); Red Cell Distribution Width 13.6 % (11.5-14.5); Segmented Neutrophils % 87.3 %
[2018-04-11 08:04] LABS: INR 1.5; Monocytes # 1.5 K/mcL (0.0-1.3); Prothrombin Time 16.5 Seconds (9.4-12.1)
[2018-04-11 08:12] LABS: Platelet Estimate Normal (Normal)
[2018-04-11 08:17] LABS: Alanine Aminotransferase 11 Units/L (7-52); Albumin 2.5 g/dL (3.5-5.7); Alkaline Phosphatase 61 Units/L (34-104); Aspartate Amino Transferase 16 Units/L (13-39); BUN/Creatinine Ratio 18 (6-26); Bilirubin,Direct 0.2 mg/dL (0.0-0.2); Bilirubin,Indirect 0.4 mg/dL (0.0-1.2); Bilirubin,Total 0.6 mg/dL (0.3-1.0); Blood Urea Nitrogen 13 mg/dL (8-23); Calcium 7.6 mg/dL (8.6-10.3); Carbon Dioxide 19 mEq/L (23-29); Chloride 110 mEq/L (98-107); Globulin 2.4 g/dL (2.4-3.5); Glucose 86 mg/dL (70-105); Osmolality,Calculated 285 (280-300); Sodium 138 mEq/L (136-145); Total Protein 4.9 g/dL (6.4-8.9); eGFR For Non-African Americans > 60 (> 60)
[2018-04-11] MEDS ORDERED: Lisinopril 20 MG TABLET PO SCH (09:00)
[2018-04-11] MEDS: Vancomycin Oral Soln 125 MG/2.5 ML UDC PO SCH ×4 (09:48→20:14)
[2018-04-11] MEDS: Cyclosporine [Restasis] OP SCH (09:50)
[2018-04-11] MEDS: NEOMYCIN OP SCH (09:52)
[2018-04-11] MEDS: POLYMYXIN B OP SCH (09:52)
[2018-04-11] MEDS: Latanoprost 2.5 ML BOTTLE BOTH EYES SCH (09:52)
[2018-04-11] MEDS: HYDROCORTISONE OP SCH (09:52)
[2018-04-11] MEDS: 0.9 % Sodium Chloride 1,000 ML IVC SCH (10:21)
--- NOTE | 2018-04-11 12:30 | General Surgery Consult Note ---
Date of Encounter: 04/11/18 Time of Encounter: 12:27 Assessment and Plan (1) Clostridium difficile colitis Current Visit: Yes Status: Acute patient with diarrhea for several months and now with wbc 39 on admission, pancolitis due to cdiff - severe disease pain not well controlled on current regimen will add oral sl pain control serial abdominal exams getting iv flagyl, po vanco, will add vanco enemas due to the severity of her disease, she is at risk of megacolon requiring subtotal colectomy - discussed with patient ivf hydration npo prn antiemetics repeat cbc at 7 pm tonight trend labs (2) DVT prophylaxis Current Visit: Yes Status: Acute heparin sq (3) Leukocytosis Current Visit: Yes Status: Acute due to bella cdiff colitis recheck cbc 7 pm, trend continue abx Qualifiers: Leukocytosis type: unspecified Qualified Code(s): D72.829 - Elevated white blood cell count, unspecified History of Present Illness Consult date: 04/11/18 Reason for consult: other (cdiff colitis) Requesting physician: Caro Weiner History of present illness: Patient is a 62 you female who states she has been having abdominal pain and diarrhea since January of this year. Last few days pain which is generalized and sharp without radiation has become more severe. She has been having nausea and vomiting. No fevers, denies hematemesis or hematochezia. She presented to ED and CT scan showed pancolitis, wbc 39. Past Med Surg Social Fam HX - Past Medical History Source: patient Medical history: arthritis, cancer, COPD, fibromyalgia, GERD, hyperlipidemia, hy pertension, other Additional medical history: Osteoarthritis, lupus, chronic cellulitis, le edema, narcolepsy, sleep apnea, trigeminal neualgia, palpitations, diastolic dysfun ction, hernia, vulva cancer Psychiatric history: no psych history - Past Surgical History Surgical History: hysterectomy Additional surgical history: right breast bx. left ear sx. cal. hernia repair. vaginal bx - Social History Smoking Status: Current every day smoker Smokeless Tobacco Status: No Alcohol use: none Drug use: none - Family History Mother Living Status: Hx Family Cardiac Disorders: Yes Hx Family Respiratory Disorders: Yes Hx Family Cancer: No Hx Family GI Disorders: No Hx Family Endocrine Disorder: No Hx Family Neuromuscular Disorders: No Hx Family Neurologic Disorders: No Hx Family HEENT Disorders: No Hx Family Autoimmune Disorders: No Medications and Allergies Albuterol Sulfate [Ventolin Hfa] 18 gm IH DAILY PRN 10/19/17 [History] Cyclosporine [Restasis] 1 each OP DAILY 10/19/17 [History] Gabapentin [Neurontin] 200 mg PO HS 10/19/17 [History] HydrOXYzine Pamoate [Vistaril] 50 mg PO HS 10/19/17 [History] Hydrocodone Bit/Homatrop Me-Br [Hydrocodone-Homatropine 5-1.5] 1 each PO 1-3XD PRN 10/19/17 [History] Latanoprost [Xalatan] 2.5 ml OP DAILY 10/19/17 [History] Metoprolol [Lopressor] 25 mg PO BID 10/19/17 [History] Neomycin/Polymyxin B Sulf/Hc [Hvzitlqk-Fsvv-Yp Eye Drops] 7.5 ml OP DAILY 10/19/17 [History] [place]-3 Fatty Acids [Fish Oil] 300 mg PO DAILY 10/19/17 [History] Ondansetron HCl [Zofran] 4 mg PO Q8HR PRN #90 tab 10/19/17 [Rx] RX: Lisinopril 30 mg PO DAILY 10/19/17 [History] Esomeprazole Magnesium [Nexium] 40 mg PO 04/10/18 [History] Esomeprazole Magnesium [Nexium] 40 mg PO 04/10/18 [History] Allergy/AdvReac Type Severity Reaction Status Date / Time duloxetine [From Cymbalta] Allergy Drowsy Verified 10/19/17 11:34 iodine Allergy Hives Verified 10/19/17 11:34 morphine Allergy hallucinati Verified 10/19/17 11:34 ons pregabalin [From Lyrica] Allergy decreased Verified 10/19/17 11:34 awareness Hydromorphone [From Dilaudid] AdvReac Hypotension Verified 10/19/17 11:34 rosuvastatin [From Crestor] AdvReac Muscle Pain Verified 10/19/17 11:34 Review of Systems All systems PM: reviewed and no additional remarkable complaints except as stated All systems PM: The remainder of the systems were reviewed and are negative General Surgery Exam Initial Vital Signs Temp Pulse Resp BP Pulse Ox 98.1 F 112 20 115/74 93 04/10/18 15:03 12/15/18 15:03 04/10/18 15:03 04/10/18 15:03 04/10/18 15:03 - General physical appearance well developed, well nourished, moderate distress, moderate pain - Eyes PERRL, normal ocular movement - ENT normal mucosa, normocephalic - Neck trachea midline - Respiratory normal expansion, clear to auscultation - Cardiovascular Cardiovascular exam: Present: tachycardia, no murmurs/rubs/gallops - Abdomen Abdomen general surgery: Present: bowel sounds present (aint), soft, distended, tender (generalized moderate abdominal pain). Absent: guarding, rebound - Integumentary Integumentary general surgery: Present: warm and dry, no abnormal pigmentation - Neurologic Present: CN 2-12 grossly intact - Musculoskeletal Present: normal gait, normal posture - Psychiatric Psychiatric general surgery: Present: A&Ox3, speech is normal Exam Initial Vital Signs Temp Pulse Resp BP Pulse Ox 98.1 F 112 20 115/74 93 04/10/18 15:03 04/10/18 15:03 04/10/18 15:03 04/10/18 15:03 04/10/18 15:03 Results - Labs 04/11/18 07:36 04/11/18 07:36 Short CBC 04/11/18 04/10/18 Range/Units 07:36 15:15 WBC 31.5 H* 39.0 H* (4.3-11.1) K/mcL Hgb 12.2 D 15.1 (11.5-15.4) g/dL Hct 36.2 43.6 (35.3-44.9) % Plt Count 224 257 (140-400) K/mcL Neutrophils # 27.5 H 33.9 H (1.6-8.9) K/mcL BMP 04/11/18 04/10/18 Range/Units 07:36 15:15 Sodium 138 137 (136-145) mEq/L Potassium 3.0 L 3.4 L (3.5-5.1) mEq/L Chloride 110 H 103 (98-107) mEq/L Carbon Dioxide 19 L 24 (23-29) mEq/L BUN 13 17 (8-23) mg/dL Creatinine 0.72 0.97 (0.60-1.20) mg/dL Glucose 86 109 H (70-105) mg/dL Calcium 7.6 L 8.7 (8.6-10.3) mg/dL Liver Function 04/11/18 04/10/18 Range/Units 07:36 15:15 Total Bilirubin 0.6 0.8 (0.3-1.0) mg/dL Direct Bilirubin 0.2 0.2 (0.0-0.2) mg/dL AST 16 12 L (13-39) Units/L ALT 11 13 (7-52) Units/L Alkaline Phosphatase 61 82 (34-104) Units/L Albumin 2.5 L 3.2 L (3.5-5.7) g/dL Urine 04/10/18 Range/Units 16:16 Urine Color Dark Yellow (Yellow) Urine Clarity Slightly Hazy (Clear) Urine pH 6.0 (5.0-8.0) pH Units Ur Specific [place] 1.017 (1.010-1.025) Urine Protein >=300 H (Neg-Trace) mg/dL Urine Glucose (UA) Normal (Normal) mg/dL Vital Signs Temp Pulse Resp BP Pulse Ox 04/11/18 11:15 98.6 F 89 16 101/63 91 04/11/18 07:09 100.4 F H 124 16 147/82 92 04/11/18 03:21 99.6 F 107 16 116/68 93 04/10/18 23:42 99.2 F 96 16 118/67 92 04/10/18 21:51 99.3 F 125 15 118/69 91 04/10/18 20:00 101.5 F H 128 16 119/74 92 04/10/18 19:42 100.4 F H 14 111/71 04/10/18 15:03 98.1 F 112 20 115/74 93 Intake and Output 04/10/18 04/11/18 04/11/18 23:59 07:59 15:59 Intake Total 1000 / 1000 3000 / 3000 100 / 100 Output Total 0 / 0 Balance 1000 / 1000 3000 / 3000 100 / 100 Intake: IV Fluids 1000 / 1000 3000 / 3000 100 / 100 0.9 % Sodium Chloride 1,000 ML 1900 / 1900 100 / 100 @ 125 mls/hr IVC .Q8H [facility] Rx#: [id number] Lactated Ringers 1,000 ML @ 1000 / 1000 1000 / 1000 1000 mls/hr IVC .Q1H [facility] Rx#: [id number] Flagyl Premix 500 MG/100 ML 500 100 / 100 mg In 100 ml @ 100 mls/hr IVPB Q8HR [facility] Rx#:[id number] Oral 0 / 0 0 / 0 Output: Urine 0 / 0 Other: Stool Size Small Small Stool Consistency liquid loose Stool Characteristics Mucoid Stool Color Brown Brown Yellow # Bowel Movements 1 1 Weight 57.4 kg 57.6 kg Blood Glucose* 87 Patient Weight 04/11/18 23:59 Weight 57.6 kg - Imaging CT scan - abdomen: report reviewed, image reviewed CT scan - pelvis: report reviewed, image reviewed Consult Discharge Plan - Plan Referrals: Amador Jennings MD [Primary Care Provider] -
--- NOTE | 2018-04-11 12:39 | Internal Med Progress Note ---
Hospitalist Progress Note - Encounter Date of Encounter: 04/11/18 Time of Encounter: 12:26 - Subjective Interval History: Patient was seen and examined at bedside. Reports that she has had at least 10 episodes of diarrhea for the past few days that is associated with incontinence. Her diarrhea began 3 months ago after she was prescribed a course of ant ibiotics for parotiditis. Her diarrhea is associated with diffuse abdominal pain, fever and chills. She reports that she has had 5 episodes of diarrhea overnight. Her abdominal pain persists however its outer, fever and chills have resolved since admission. - Exam Vitals: Temp Pulse Resp BP Pulse Ox 98.6 F 89 16 101/63 91 04/11/18 11:15 04/11/18 11:15 04/11/18 11:15 04/11/18 11:15 04/11/18 11:15 Exam: General: Patient is alert, oriented, no acute distress, Head: atraumatic, normocephalic, Eye: normal appearance, PERRL, no scleral icterus, no conjunctival injection ENT: mucous membranes moist, normal external ear exam Neck: normal inspection, trachea midline, full ROM, no carotid bruits Chest: normal inspection, symmetric chest rise Respiratory: Good respiratory effort. Bilateral breath sounds are clear without wheezing, crackles, or rhonchi. Cardiovascular: Regular rate and rhythm. s1 and s2 No clicks, rubs, gallops, or murmors. Abdomen: Bowel sounds present normoactive x-4 quadrants. Abdomen is soft, nondistended. Diffusely tender on palpation, No guarding or rebound. No organomegaly noted, obese musculoskeletal: Spontaneously moving all extremities. no edema, no calf tenderness Skin: warm, dry, intact. Neuro: Alert and oriented x4. Sensation light touch intact. Cranial nerves 2- 12 is intact. Not aphasic, gait is steady, rapid hand movements intact, [id number] intact, Psych: Patient's affect is normal - Assessment and Plan (1) Sepsis Current Visit: Yes Status: Acute Assessment and Plan: Sepsis secondary to C. difficile colitis As evidenced by tachycardia, fever and leukocytosis; We will continue IV fluids Blood cultures obtained in the emergency departmentno growth to date Lactic acid within normal limit we will continue vancomycin PO and metronidazole (2) Clostridium difficile colitis Current Visit: Yes Status: Acute Assessment and Plan: Abdominal pain and diarrhea secondary to C. difficile colitis. CT abdomen and pelvis with pancolitis. Was started on oral vancomycin and IV metronidazole Nothing by mouth Continue IV fluids Surgery consulted will follow recommendations CT abdomen and pelvis IMPRESSION: Diffuse colonic wall thickening and pericolonic inflammatory changes is consistent with pancolitis. Findings are likely infectious or inflammatory in etiology. (3) Hypertension Current Visit: No Status: Chronic Assessment and Plan: . We will keep her nothing by mouth and continue with IV medications (4) Smoker Current Visit: Yes Status: Acute Assessment and Plan: Nicotine patch provided. Was counseled (5) DVT prophylaxis Current Visit: Yes Status: Acute Assessment and Plan: Heparin subcutaneous - Time Spent with Patient Total time spent is greater than 50% in coordination of care (as documented) at patient's floor/unit and/or counseling patient: Internal Medicine: Result - Labs CBC & Chem 7: 04/11/18 07:36 04/11/18 07:36 Labs: Short CBC 04/10/18 04/11/18 Range/Units 15:15 07:36 WBC 39.0 H* 31.5 H* (4.3-11.1) K/mcL Hgb 15.1 12.2 D (11.5-15.4) g/dL Hct 43.6 36.2 (35.3-44.9) % Plt Count 257 224 (140-400) K/mcL Neutrophils # 33.9 H 27.5 H (1.6-8.9) K/mcL BMP 04/10/18 04/11/18 15:15 07:36 Sodium 137 138 Potassium 3.4 L 3.0 L Chloride 103 110 H Carbon Dioxide 24 19 L BUN 17 13 Creatinine 0.97 0.72 Glucose 109 H 86 Calcium 8.7 7.6 L Liver Function 04/10/18 04/11/18 Range/Units 15:15 07:36 Total Bilirubin 0.8 0.6 (0.3-1.0) mg/dL Direct Bilirubin 0.2 0.2 (0.0-0.2) mg/dL AST 12 L 16 (13-39) Units/L ALT 13 11 (7-52) Units/L Alkaline Phosphatase 82 61 (34-104) Units/L Albumin 3.2 L 2.5 L (3.5-5.7) g/dL Urine 04/10/18 Range/Units 16:16 Urine Color Dark Yellow (Yellow) Urine Clarity Slightly Hazy (Clear) Urine pH 6.0 (5.0-8.0) pH Units Ur Specific [place] 1.017 (1.010-1.025) Urine Protein >=300 H (Neg-Trace) mg/dL Urine Glucose (UA) Normal (Normal) mg/dL - ABG Interpretation ABG results: PT/INR, D-dimer PT 16.5 Seconds (9.4-12.1) H 04/11/18 07:36 - Impressions Impressions Abdomen/Pelvis CT 04/10/18 15:39 IMPRESSION: Diffuse colonic wall thickening and pericolonic inflammatory changes is consistent with pancolitis. Findings are likely infectious or inflammatory in etiology. D/ / 04/10/2018 17:14:00 Duane Su MD / [email or web address] Interpreting Provider: Duane Su MD Consult Discharge Plan - Plan Referrals: Amador Jennings MD [Primary Care Provider] - (1) Sepsis Qualifiers: Sepsis type: sepsis due to unspecified organism Qualified Code(s): A41.9 - Sepsis, unspecified organism (3) Hypertension Qualifiers: Hypertension type: essential hypertension Qualified Code(s): I10 - Essential (primary) hypertension
[2018-04-11] MEDS: OXYCODONE Oral CONC 10 MG/0.5 ML ORAL.SYG SL PRN (15:37)
[2018-04-11] MEDS: Vancomycin 500 MG, Sodium Chloride IRRigation 250 ML RC SCH ×3 (15:42→22:30)
[2018-04-11] MEDS: *HR* Metoprolol 5 MG/5 ML VIAL IVP SCH (17:27)
[2018-04-11] MEDS ORDERED: D5% in Water 1,000 ML IVC PRN (18:21)
[2018-04-11] MEDS ORDERED: *HR* Dextrose 50 % in Water (Syg) 50 ML SYRINGE IVP PRN (18:21)
[2018-04-11] MEDS ORDERED: D5% in 0.9% NACL 1,000 ML IVC ONE (18:32)
[2018-04-11] MEDS: Acetaminophen IV 1,000 MG/100 ML INFUS..BTL IVPB SCH (18:40)
[2018-04-11] MEDS: D5% in 0.9% NACL 1,000 ML IVC SCH (18:48)
[2018-04-11 19:02] LABS: Red Cell Distribution Width 13.9 % (11.5-14.5); Segmented Neutrophils % 86.4 %
[2018-04-11 19:03] LABS: Basophils # 0.1 K/mcL (0.0-0.2); Basophils % 0.2 %; Eosinophils # 0.2 K/mcL (0.0-0.6); Eosinophils % 0.6 %; Hematocrit 33.9 % (35.3-44.9); Hemoglobin 11.5 g/dL (11.5-15.4); Immature Granulocytes % 0.9 % (0-4); Lymphocytes # 2.5 K/mcL (0.6-4.6); Lymphocytes % 7.3 %; Mean Corpuscular HGB Conc 33.9 g/dL (31.6-35.5); Mean Corpuscular Hemoglobin 30.2 pg (28.0-33.3); Mean Platelet Volume 9.8 fL (9.4-12.4); Monocytes # 1.6 K/mcL (0.0-1.3); Monocytes % 4.6 %; Neutrophils # 29.5 K/mcL (1.6-8.9); Platelet Count 237 K/mcL (140-400); Red Blood Count 3.81 M/mcL (3.82-4.97)
[2018-04-11 19:23] LABS: BUN/Creatinine Ratio 17 (6-26); Blood Urea Nitrogen 12 mg/dL (8-23); Calcium 7.5 mg/dL (8.6-10.3); Carbon Dioxide 20 mEq/L (23-29); Chloride 111 mEq/L (98-107); Glucose 68 mg/dL (70-105); Magnesium 1.7 mg/dL (1.6-2.6); Osmolality,Calculated 284 (280-300); Potassium 3.2 mEq/L (3.5-5.1); Sodium 138 mEq/L (136-145); eGFR For Non-African Americans > 60 (> 60)
[2018-04-11 19:24] LABS: Platelet Estimate Normal (Normal)
[2018-04-11] MEDS: Gabapentin 100 MG CAPSULE PO SCH (20:14)
[2018-04-11] MEDS: hydrOXYzine pamoate 25 MG CAPSULE PO SCH (20:14)
[2018-04-11] MEDS: Nicotine 14 MG PATCH.TD24 TD SCH (20:14)
[2018-04-12] MEDS: MetroNIDAZOLE 500 MG/100 ML 500 MG/100 ML BAG IVPB SCH ×3 (00:32→17:15)
[2018-04-12] MEDS: Acetaminophen IV 1,000 MG/100 ML INFUS..BTL IVPB SCH ×4 (00:32→17:16)
[2018-04-12] MEDS: *HR* Metoprolol 5 MG/5 ML VIAL IVP SCH ×4 (00:32→17:14)
[2018-04-12] MEDS: D5% in 0.9% NACL 1,000 ML IVC SCH ×2 (00:33→11:50)
[2018-04-12 00:41] LABS: Immature Granulocytes % 0.8 % (0-4); Segmented Neutrophils % 85.6 %
[2018-04-12 00:42] LABS: Basophils # 0.1 K/mcL (0.0-0.2); Basophils % 0.2 %; Eosinophils # 0.3 K/mcL (0.0-0.6); Hematocrit 36.2 % (35.3-44.9); Hemoglobin 12.1 g/dL (11.5-15.4); Lymphocytes # 2.2 K/mcL (0.6-4.6); Lymphocytes % 7.8 %; Mean Corpuscular HGB Conc 33.4 g/dL (31.6-35.5); Mean Corpuscular Volume 89.8 fL (83.0-100.0); Mean Platelet Volume 10.1 fL (9.4-12.4); Monocytes # 1.3 K/mcL (0.0-1.3); Monocytes % 4.6 %; Neutrophils # 24.5 K/mcL (1.6-8.9); Platelet Count 245 K/mcL (140-400); Red Blood Count 4.03 M/mcL (3.82-4.97); Red Cell Distribution Width 13.7 % (11.5-14.5)
[2018-04-12 01:00] LABS: Platelet Estimate Normal (Normal); Reactive Lymphocytes Present (Not Present)
[2018-04-12 05:11] LABS: Basophils # 0.1 K/mcL (0.0-0.2); Basophils % 0.2 %; Eosinophils # 0.4 K/mcL (0.0-0.6); Eosinophils % 1.5 %; Hemoglobin 12.1 g/dL (11.5-15.4); Immature Granulocytes % 0.9 % (0-4); Lymphocytes # 1.9 K/mcL (0.6-4.6); Lymphocytes % 7.8 %; Mean Corpuscular HGB Conc 33.6 g/dL (31.6-35.5); Mean Corpuscular Hemoglobin 30.1 pg (28.0-33.3); Mean Corpuscular Volume 89.6 fL (83.0-100.0); Mean Platelet Volume 9.7 fL (9.4-12.4); Monocytes # 1.1 K/mcL (0.0-1.3); Monocytes % 4.5 %; Neutrophils # 20.7 K/mcL (1.6-8.9); Platelet Count 245 K/mcL (140-400); Red Blood Count 4.02 M/mcL (3.82-4.97); Red Cell Distribution Width 13.7 % (11.5-14.5); Segmented Neutrophils % 85.1 %
[2018-04-12 05:16] LABS: VBG Ionized Calcium 1.13 mmol/L (1.15-1.35)
[2018-04-12 05:32] LABS: BUN/Creatinine Ratio 15 (6-26); Blood Urea Nitrogen 9 mg/dL (8-23); Calcium 7.6 mg/dL (8.6-10.3); Carbon Dioxide 19 mEq/L (23-29); Chloride 114 mEq/L (98-107); Glucose 122 mg/dL (70-105); Magnesium 1.6 mg/dL (1.6-2.6); Osmolality,Calculated 292 (280-300); Potassium 3.1 mEq/L (3.5-5.1); Sodium 141 mEq/L (136-145); eGFR For Non-African Americans > 60 (> 60)
[2018-04-12] MEDS: *HR* Heparin 5,000 UNIT/ML VIAL SQ SCH ×3 (06:38→21:16)
[2018-04-12] MEDS: Pantoprazole 40 MG VIAL IVP SCH (09:10)
[2018-04-12] MEDS: Vancomycin Oral Soln 125 MG/2.5 ML UDC PO SCH ×4 (09:10→21:15)
[2018-04-12] MEDS: Latanoprost 2.5 ML BOTTLE BOTH EYES SCH ×2 (09:14→21:17)
[2018-04-12] MEDS: Vancomycin 500 MG, Sodium Chloride IRRigation 250 ML RC SCH ×5 (09:15→21:30)
[2018-04-12] MEDS: POLYMYXIN B OP SCH (09:17)
[2018-04-12] MEDS: NEOMYCIN OP SCH (09:17)
[2018-04-12] MEDS: Cyclosporine [Restasis] OP SCH (09:17)
[2018-04-12] MEDS: HYDROCORTISONE OP SCH (09:17)
--- NOTE | 2018-04-12 09:32 | Infectious Disease Consult ---
Date of Encounter: 04/12/18 Time of Encounter: 09:22 Assessment and Plan (1) Sepsis Status: Acute Assessment and plan: The patient had 3 sepsis criteria on admission. Likely secondary to C. difficile colitis. Improved. MAXIMUM TEMPERATURE 100.4 in the past 24 hours. Tachycardia persists, but improved. White blood cell count is trending down. Blood cultures drawn 04/10/18 are no growth to date 2 sets. Recommendations: General surgery consulted and following. Continue Vancomycin 125mg PO QID. Continue flagyl 500mg IV TID. Supportive care per the primary team. Duration of treatment depends on the clinical picture, but likely a total of 10- 14 days. C. diff precautions per hospital policy. Monitor renal function and dose-adjust antibiotics. Qualifiers: Sepsis type: sepsis due to unspecified organism Qualified Code(s): A41.9 - Sepsis, unspecified organism (2) Clostridium difficile colitis Status: Acute Assessment and plan: Likely secondary to recent antibiotic use. Severe based on white blood cell count greater than 15,000, but not fulminant as there are no signs of ileus or toxic megacolon or septic shock. First occurrence. Antibiotic recommendations as above. (3) Abdominal pain Status: Acute Assessment and plan: Likely secondary to C. difficile colitis. Pain management per the primary team. Qualifiers: Abdominal location: unspecified location Qualified Code(s): R10.9 - Unspecified abdominal pain (4) Diarrhea Status: Acute Assessment and plan: Likely secondary to C. difficile colitis. Qualifiers: Diarrhea type: presumed infectious Qualified Code(s): R19.7 - Diarrhea, unspecified (5) Pancolitis Status: Acute Assessment and plan: Likely secondary to C. diff. CT abdomen and pelvis showed diffuse colonic wall thickening with pericolonic changes consistent with pancolitis. General surgery consulted and following. (6) CAD (coronary artery disease) Status: Chronic Qualifiers: Coronary Disease-Associated Artery/Lesion type: [place] artery [place] vs. transplanted heart: [place] heart Associated angina: without angina Qualified Code(s): I25.10 - Atherosclerotic heart disease of [place] coronary artery without angina pectoris (7) Hypertension Status: Chronic Qualifiers: Hypertension type: essential hypertension Qualified Code(s): I10 - Essential (primary) hypertension (8) Rheumatoid arthritis Status: Chronic Assessment and plan: Not currently on treatment. Qualifiers: Rheumatoid arthritis location: unspecified site Rheumatoid factor presence: unspecified presence Qualified Code(s): M06.9 - Rheumatoid arthritis, unspecified Infectious Disease HPI - Data of Consult Patient: new to practice Consult date: 04/12/18 Requesting Physician: Caro Weienr MD Primary Care Provider: Amador Jennings MD - Consult Narrative Reason for consult: C. diff History of present illness: Ms. Price is a 62 year old female with a past medical history of COPD, fibromy algia, GERD, hyperlipidemia, hypertension, lupus, rheumatoid arthritis not currently on any treatment. The patient was admitted to the hospital 04/10/18 for pancolitis, diarrhea, and abdominal pain. We are consulted to for recommendations for C. difficile colitis. Briefly, the patient is a 42-year-old female with past medical history as stated above. The patient presented to the emergency department with complaints of intermittent diarrhea for the last 3 months. She states she was treated for parotitis about 3 months ago with IM Rocephin and Augmentin. She developed severe diarrhea and was switched to Keflex and Flagyl. The diarrhea improved, but her stools did not return to normal. She then had a left eye and ear infection and was treated with eye drops and another oral antibiotic by her eye doctor. She completed the course of treatment and her symptoms improved. She developed sinusitis symptoms and was started on Cefdinir 03/30/18 by her PCP. She states she started the medication on and Thursday morning she awoke with fevers, diarrhea, and malaise so she presented to the ER for evaluation. Upon arrival, the patient was afebrile. She was tachycardic, but was otherwise hemodynamically stable. Laboratory studies real leukocytosis with neutrophilic predominance. Lactic acid and LFTs were normal. Blood cultures were obtained [address] abdomen and pelvis that showed diffuse colonic wall thickening impaired colonic changes consistent with pancolitis. C. difficile was positive. She was admitted to the hospital for further evaluation. Since admission, the patient has had some intermittent fevers with a MAXIMUM TEMPERATURE of 100.4 in the last 24 hours. She continues to have some intermittent tachycardia. General surgery was consulted and recommended vancomycin per rectum in addition to the IV and oral antibiotic she was early on. Her white blood cell count has improved. Currently, she is on IV Flagyl, oral vancomycin, and rectal vancomycin, which she has refused. We have been asked to evaluate and make further recommendations. During my exam today, the patient endorses a history as stated above. She reports fevers with chills, but denies rigors. She reports subjective headaches and nasal congestion. She denies a cough or chest pain. She does report some shortness of breath. She states she generally feels weak and tired and overall not well. She reports diffuse abdominal pain, worse when trying to have a bowel movement. She states her stools or mucousy and watery and does have some blood in it. She denies any urinary complaints. She states her appetite has not been very good she has been somewhat nauseated. She does try vomiting. She denies any pain that is out of the ordinary for her at this time in her joints or back or extremities. She denies any oral thrush or new skin lesions. The patient lives at home with her . She does have a dog. She denies any recent travel outside the [facility], [place]. She denies tobacco, alcohol, illicit drug use. She denies any known chronic infectious diseases. CC: Caro Weiner MD Past Med Surg Social Fam HX - Past Medical History Attestation: Yes The following information was validated with the patient. Source: patient, old records reviewed, nursing notes reviewed Medical history: arthritis, cancer, COPD, fibromyalgia, GERD, hyperlipidemia, hypertension, other Additional medical history: Osteoarthritis, lupus, chronic cellulitis, le edema, narcolepsy, sleep apnea, trigeminal neualgia, palpitations, diastolic dysfunction, hernia, vulva cancer Psychiatric history: no psych history - Past Surgical History Surgical History: hysterectomy Additional surgical history: right breast bx. left ear sx. cal. hernia repa ir. vaginal bx - Social History Smoking Status: Never smoker Smokeless Tobacco Status: No Alcohol use: none Drug use: none Occupational status: disabled Current living situation: Home, With Family Activity Level: Independent ambulation Recent Out of Country Travel Within the Last 8 Weeks: No Exposure or Possible Exposure to Illness During Travel: No - Family History Mother Living Status: Hx Family Cardiac Disorders: Yes Hx Family Respiratory Disorders: Yes Hx Family Cancer: No Hx Family GI Disorders: No Hx Family Endocrine Disorder: No Hx Family Neuromuscular Disorders: No Hx Family Neurologic Disorders: No Hx Family HEENT Disorders: No Hx Family Autoimmune Disorders: No Infectious Disease-CN:Meds Albuterol Sulfate [Ventolin Hfa] 18 gm IH DAILY PRN 10/19/17 [History] Cyclosporine [Restasis] 1 each OP DAILY 10/19/17 [History] Gabapentin [Neurontin] 200 mg PO HS 10/19/17 [History] HydrOXYzine Pamoate [Vistaril] 50 mg PO HS 10/19/17 [History] Hydrocodone Bit/Homatrop Me-Br [Hydrocodone-Homatropine 5-1.5] 1 each PO 1-3XD PRN 10/19/17 [History] Latanoprost [Xalatan] 2.5 ml OP DAILY 10/19/17 [History] Metoprolol [Lopressor] 25 mg PO BID 10/19/17 [History] Neomycin/Polymyxin B Sulf/Hc [Uffeienw-Rqfz-Vz Eye Drops] 7.5 ml OP DAILY 10/19/17 [History] [place]-3 Fatty Acids [Fish Oil] 300 mg PO DAILY 10/19/17 [History] Ondansetron HCl [Zofran] 4 mg PO Q8HR PRN #90 tab 10/19/17 [Rx] RX: Lisinopril 30 mg PO DAILY 10/19/17 [History] Esomeprazole Magnesium [Nexium] 40 mg PO 04/10/18 [History] Esomeprazole Magnesium [Nexium] 40 mg PO 04/10/18 [History] Allergy/AdvReac Type Severity Reaction Status Date / Time duloxetine [From Cymbalta] Allergy Drowsy Verified 10/19/17 11:34 iodine Allergy Hives Verified 10/19/17 11:34 morphine Allergy hallucinati Verified 10/19/17 11:34 ons pregabalin [From Lyrica] Allergy decreased Verified 10/19/17 11:34 awareness Hydromorphone [From Dilaudid] AdvReac Hypotension Verified 10/19/17 11:34 rosuvastatin [From Crestor] AdvReac Muscle Pain Verified 10/19/17 11:34 All systems: reviewed and no additional remarkable complaints except as stated Exam - Constitutional Vitals: Temp Pulse Resp BP Pulse Ox 98.5 F 94 18 141/73 93 04/12/18 07:06 04/12/18 07:06 04/12/18 07:06 04/12/18 07:06 04/12/18 07:06 General appearance: average body habitus, cooperative, no acute distress - Head Head exam: Present: atraumatic, normal inspection, normocephalic - Eye Eye exam: Present: EOMI, normal appearance, PERRL Pupils: Present: normal accommodation - ENT ENT exam: Present: mucous membranes dry - Neck Neck exam: Present: normal inspection - Respiratory Respiratory exam: Present: CTAB. Absent: rales, respiratory distress, rhonchi, wheezes - Cardiovascular Cardiovascular exam: Present: RRR, +S1, +S2 - GI/Abdominal GI/Abdominal exam: Present: normal bowel sounds, soft, tenderness (generalized). Absent: distended - Extremities Exam Extremities exam: Present: normal inspection, pedal edema (1+ BLE). Absent: joint swelling, tenderness - Neurological Exam Neurological exam: Present: alert, oriented X3, no focal deficits - Psychiatric Psychiatric exam: Present: normal affect, normal mood - Skin Skin exam: Present: dry, intact, normal color, warm Infectious Disease CN: Results - Labs CBC & Chem 7: 04/12/18 05:01 04/12/18 05:01 Cultures: Cultures 04/11/18 00:45 Clostridium difficile Toxin A & B - Final Stool 04/10/18 17:10 Blood Culture - Preliminary Peripheral Venipuncture Culture is incubating and being continuously monitored for growth. Final report to follow. 04/10/18 17:06 Blood Culture - Preliminary Peripheral Venipuncture Culture is incubating and being continuously monitored for growth. Final report to follow. Serology: Serology 04/11/18 04/10/18 Range/Units 00:45 16:16 Urine Color Dark Yellow (Yellow) Urine Clarity Slightly Hazy (Clear) Urine pH 6.0 (5.0-8.0) pH Units Ur Specific [place] 1.017 (1.010-1.025) Urine Protein >=300 H (Neg-Trace) mg/dL Urine Glucose (UA) Normal (Normal) mg/dL Urine Ketones Trace H (Negative) mg/dL Urine Blood Large H (Negative) Urine Nitrite Negative (Negative) Urine Bilirubin Small H (Negative) Urine Urobilinogen Normal (Normal) mg/dL Ur Leukocyte Esterase Trace H (Negative) Urine Microscopic RBC TNTC H (0-3) per hpf Urine Microscopic WBC 5-15 H (0-3) per hpf Ur Squamous Epith Cells Many H (None-Few) per lpf Ur Transition Epith Cell Few (None-Few) per hpf Ur Renal Epithelial Cell Few (None-Few) per hpf Urine Bacteria None Seen (None-Few) per hpf Hyaline Casts Few (None-Few) per lpf Granular Casts Few H (None Seen) per lpf Ur Culture Indicated? NO. A (NO) Stl C. c[place]anensis PCR Not detected (Not detect) Stool Rotavirus A PCR Not detected (Not detect) Stl Adenov F 40/41 PCR Not detected (Not detect) Stool Astrovirus (PCR) Not detected (Not detect) Stool Campylobacter PCR Not detected (Not detect) Stool Cryptosporidium PCR Not detected (Not detect) Stl Sh Tox Pr E STEC PCR Not detected (Not detect) Stool E coli O157 PCR Not detected (Not detect) Stl Enterotoxigenic E PCR Not detected (Not detect) Stool EPEC (PCR) Not detected (Not detect) Stool EAEC (PCR) Not detected (Not detect) Stl E. histolytica PCR Not detected (Not detect) Stool Giardia Lamblia PCR Not detected (Not detect) Stool Salmonella PCR Not detected (Not detect) Stool Sapovirus (PCR) Not detected (Not detect) Stl P. shigelloides PCR Not detected (Not detect) Stl Shigella/EIEC PCR Not detected (Not detect) St Y.enterocolitica PCR Not detected (Not detect) Stool Vibrio (PCR) Not detected (Not detect) Stl Vibrio cholerae PCR Not detected (Not detect) Stl Norovirus GI/GII PCR Not detected (Not detect) Stl GI Panel (PCR) Com See below C.diff Toxin Gene (PAULO) DETECTED A (Not detect) Consult Discharge Plan - Plan Referrals: Amador Jennings MD [Primary Care Provider] - - Attending Attestation I examined this patient and my medical decision-making was reviewed with the Resident Physician. I agree with the documented findings, disposition and treatment plan as described except to the extent set forth below. This is an addendum to original report dictated by Felicia alcala CMP. Please refer to Felicia's note for full detail. Patient is a 62-year-old woman who apparently had recent antibiotic use with 3 m onths ago with Rocephin on Augmentin. Patient was then treated with Keflex and Flagyl for quite some time. Patient came in with severe diarrhea and sepsis like picture her C. difficile was positive. Patient fitted severe C. difficile criteria and was started on oral vancomycin, IV Flagyl and per rectum vancomycin by the surgery team. Patient the new recommendations. Patient has severe C. difficile disease since she has WBC over 15,000. Patient does not have signs of shock, hypotension, ile us or toxic megacolon therefore she does not fit into the pulmonary disease category. I will continue vancomycin 125 mg 4 times a day plus Flagyl IV for now. I do not believe the patient needs vancomycin per rectum. We will discuss recommendations with the primary and hospitalist team
--- NOTE | 2018-04-12 09:53 | Internal Med Progress Note ---
Hospitalist Progress Note - Encounter Date of Encounter: 04/12/18 Time of Encounter: 08:00 - Subjective Interval History: Patient was seen and examined at bedside. Reports she had 7 episodes of diarrhea in the past 24 hours. This is an improvement to how she was feeling at home as she was having more than 10 bowel movements a day. She is frustrated th at she is fatigued and would like to sleep however was being woken up at night for vancomycin enemas. QUESTIONS and concerns were answered. She denies fever, chills, nausea, vomiting, diarrhea, chest pain, shortness of breath or palpitations - Exam Vitals: Temp Pulse Resp BP Pulse Ox 98.5 F 94 18 141/73 93 04/12/18 07:06 04/12/18 07:06 04/12/18 07:06 04/12/18 07:06 04/12/18 07:06 Exam: General: Patient is alert, oriented, no acute distress, Head: atraumatic, normocephalic, Eye: normal appearance, PERRL, no scleral icterus, no conjunctival injection ENT: mucous membranes moist, normal external ear exam Neck: normal inspection, trachea midline, full ROM, no carotid bruits Chest: normal inspection, symmetric chest rise Respiratory: Good respiratory effort. Bilateral breath sounds are clear without wheezing, crackles, or rhonchi. Cardiovascular: Regular rate and rhythm. s1 and s2 No clicks, rubs, gallops, or murmors. Abdomen: Bowel sounds present normoactive x-4 quadrants. Abdomen is soft, nondistended. Diffusely tender on palpation, No guarding or rebound. No organomegaly noted, obese musculoskeletal: Spontaneously moving all extremities. no edema, no calf tenderness Skin: warm, dry, intact. Neuro: Alert and oriented x4. Sensation light touch intact. Cranial nerves 2- 12 is intact. Not aphasic, gait is steady, rapid hand movements intact, [id number] intact, Psych: Patient's affect is normal - Assessment and Plan (1) Sepsis Current Visit: Yes Status: Acute Assessment and Plan: Sepsis secondary to severe C. difficile colitis As evidenced by tachycardia , fever ( resolved) and leukocytosis- trending down We will continue IV fluids Blood cultures obtained in the emergency departmentno growth to date Lactic acid within normal limit we will continue vancomycin PO and enemas and metronidazole (2) Clostridium difficile colitis Current Visit: Yes Status: Acute Assessment and Plan: Abdominal pain and diarrhea secondary to severe C. difficile colitis. CT abdomen and pelvis with pancolitis. Was started on oral vancomycin , vancomycin enemas and IV metronidazole Nothing by mouth Continue IV fluids Surgery and ID on board CT abdomen and pelvis IMPRESSION: Diffuse colonic wall thickening and pericolonic inflammatory changes is consistent with pancolitis. Findings are likely infectious or inflammatory in etiology. (3) Hypertension Current Visit: No Status: Chronic Assessment and Plan: . We will keep her nothing by mouth and continue with IV medications (4) Smoker Current Visit: Yes Status: Acute Assessment and Plan: Nicotine patch provided. Was counseled (5) Hypokalemia Current Visit: Yes Status: Acute Assessment and Plan: Potassium 3.1 Replaced (6) Hypocalcemia Current Visit: Yes Status: Acute Assessment and Plan: Ionized calcium of 1.13 Replaced (7) Hypophosphatemia Current Visit: Yes Status: Acute Assessment and Plan: Phosphorus level of 2 Replaced (8) DVT prophylaxis Current Visit: Yes Status: Acute Assessment and Plan: scds and heparin sc - Time Spent with Patient Total time spent is greater than 50% in coordination of care (as documented) at patient's floor/unit and/or counseling patient: Internal Medicine: Result - Labs CBC & Chem 7: 04/12/18 05:01 04/12/18 05:01 Labs: Short CBC 04/11/18 04/12/18 04/12/18 Range/Units 18:51 00:17 05:01 WBC 34.1 H* 28.6 H 24.4 H (4.3-11.1) K/mcL Hgb 11.5 12.1 12.1 (11.5-15.4) g/dL Hct 33.9 L 36.2 36.0 (35.3-44.9) % Plt Count 237 245 245 (140-400) K/mcL Neutrophils # 29.5 H 24.5 H 20.7 H (1.6-8.9) K/mcL BMP 04/11/18 04/12/18 18:51 05:01 Sodium 138 141 Potassium 3.2 L 3.1 L Chloride 111 H 114 H Carbon Dioxide 20 L 19 L BUN 12 9 Creatinine 0.69 0.61 Glucose 68 L 122 H Calcium 7.5 L 7.6 L - ABG Interpretation ABG results: PT/INR, D-dimer PT 16.5 Seconds (9.4-12.1) H 04/11/18 07:36 Consult Discharge Plan - Plan Referrals: Amador Jennings MD [Primary Care Provider] - (1) Sepsis Qualifiers: Sepsis type: sepsis due to unspecified organism Qualified Code(s): A41.9 - Sepsis, unspecified organism (3) Hypertension Qualifiers: Hypertension type: essential hypertension Qualified Code(s): I10 - Essential (primary) hypertension
[2018-04-12] MEDS: OXYCODONE Oral CONC 10 MG/0.5 ML ORAL.SYG SL PRN (11:47)
--- NOTE | 2018-04-12 13:44 | General Surgery Progress Note ---
<Wilma Underwood - Last Filed: 04/12/18 13:36> Date of Encounter: 04/12/18 Time of Encounter: 11:00 - Assessment and Plan (1) Clostridium difficile colitis Current Visit: Yes Status: Acute Mr. Price's exam is significantly improved from yesterday. Per review with attending surgeon, yesterday she was in severe abdominal pain and basically curled up in a ball. Today she is cooperative with exam, states she is nontender on palpation, and that her overall discomfort is improved. She reports an appetite despite 6 episodes of diarrhea since midnight. Pain meds were adjusted on 04/11/2018. She is better controlled. she remains at risk of megacolon requiring subtotal colectomy; Dr. Sawant discussed with patient WBC remains elevated but is down trending. Continue current therapy pancolitis due to cdiff - severe disease Continue IV flagyl, po vanco, vanco enemas due to the severity of her disease continue IV fluids per primary team CLD prn antiemetics repeat a.m. labs serial abdominal exams we will continue to closely monitor with you (2) Smoker Current Visit: Yes Status: Acute smoking cessation strongly encouraged (3) DVT prophylaxis Current Visit: Yes Status: Acute per primary team heparin SQ EPCDs Objective Vital Signs - Last 8 Hours Temp Pulse Resp BP Pulse Ox 04/12/18 11:24 98.4 F 92 18 149/85 04/12/18 07:06 98.5 F 94 18 141/73 93 Intake and Output 04/11/18 04/12/18 04/12/18 23:59 07:59 15:59 Intake Total 1026 / 1026 1400 / 1400 1540 / 1540 Balance 1026 / 1026 1400 / 1400 1540 / 1540 Intake: IV Fluids 1026 / 1026 1400 / 1400 1300 / 1300 0.9 % Sodium Chloride 1,000 ML 426 / 426 @ 125 mls/hr IVC .Q8H [facility] Rx#: [id number] D5% And 0.9% Nacl 1000 Ml 1,000 1000 / 1000 1000 / 1000 ML @ 125 mls/hr IVC .Q8H [facility] Rx#:[id number] Ofirmev 1,000 mg/100 ml 1,000 100 / 100 200 / 200 mg In 100 ml @ 400 mls/hr IVPB Q6HR [facility] Rx#:[id number] Magnesium Sulfate 1 GM In 0.9 % 100 / 100 Sodium Chloride 100 ML @ 100 mls/hr IVPB ONCE ONE Rx#: [id number] Flagyl Premix 500 MG/100 ML 500 100 / 100 100 / 100 mg In 100 ml @ 100 mls/hr IVPB Q8HR [facility] Rx#:[id number] Potassium Chloride 10 mEq/100mL 300 / 300 100 / 100 300 / 300 10 meq In 100 ml @ 100 mls/hr IVPB Q1H [facility] Rx#:[id number] Oral 240 / 240 Other: Stool Size Moderate Stool Consistency loose Stool Color Brown # Voids 1 1 # Bowel Movements 1 Weight 58.2 kg Blood Glucose* 70 142 159 Patient Weight 04/12/18 23:59 Weight 58.2 kg - Labs 04/12/18 05:01 04/12/18 05:01 Diabetes panel 04/11/18 04/12/18 Range/Units 18:51 05:01 Sodium 138 141 (136-145) mEq/L Potassium 3.2 L 3.1 L (3.5-5.1) mEq/L Chloride 111 H 114 H (98-107) mEq/L Carbon Dioxide 20 L 19 L (23-29) mEq/L BUN 12 9 (8-23) mg/dL Creatinine 0.69 0.61 (0.60-1.20) mg/dL Glucose 68 L 122 H (70-105) mg/dL Calcium 7.5 L 7.6 L (8.6-10.3) mg/dL Calcium panel 04/11/18 04/12/18 Range/Units 18:51 05:01 Calcium 7.5 L 7.6 L (8.6-10.3) mg/dL Phosphorus 2.0 L (2.7-4.5) mg/dL Pituitary panel 04/11/18 04/12/18 Range/Units 18:51 05:01 Sodium 138 141 (136-145) mEq/L Potassium 3.2 L 3.1 L (3.5-5.1) mEq/L Chloride 111 H 114 H (98-107) mEq/L Carbon Dioxide 20 L 19 L (23-29) mEq/L BUN 12 9 (8-23) mg/dL Creatinine 0.69 0.61 (0.60-1.20) mg/dL Glucose 68 L 122 H (70-105) mg/dL Calcium 7.5 L 7.6 L (8.6-10.3) mg/dL Adrenal panel 04/11/18 04/12/18 Range/Units 18:51 05:01 Sodium 138 141 (136-145) mEq/L Potassium 3.2 L 3.1 L (3.5-5.1) mEq/L Chloride 111 H 114 H (98-107) mEq/L Carbon Dioxide 20 L 19 L (23-29) mEq/L BUN 12 9 (8-23) mg/dL Creatinine 0.69 0.61 (0.60-1.20) mg/dL Glucose 68 L 122 H (70-105) mg/dL Calcium 7.5 L 7.6 L (8.6-10.3) mg/dL Consult Discharge Plan - Plan Referrals: Amador Jennings MD [Primary Care Provider] - <Sophia Sawant - Last Filed: 04/12/18 18:12> Date of Encounter: 04/12/18 - Assessment and Plan (1) Clostridium difficile colitis Current Visit: Yes Status: Acute patients abdominal pain is improved compared to yesterday but is not resolved and she is still distended she is complaining of increased pain with liquid intake and we discussed decreasing the po intake continue current antibiotic therapy prn pain control ambulate gi/dvt prophylaxis wbc decreasing appropriately, trend serial abdominal exams do not advance diet at this point (2) DVT prophylaxis Current Visit: Yes Status: Acute (3) Leukocytosis Current Visit: Yes Status: Acute improving Qualifiers: Leukocytosis type: unspecified Qualified Code(s): D72.829 - Elevated white blood cell count, unspecified Subjective Patient reports: no new complaints, feels better, still having pain, pain is less, tolerating liquids well (some pain with liquid intake), flatus, diarrhea, afebrile Objective Vital Signs - Last 8 Hours Temp Pulse Resp BP 04/12/18 17:09 98.2 F 94 18 168/96 04/12/18 11:24 98.4 F 92 18 149/85 Intake and Output 04/12/18 04/12/18 04/12/18 07:59 15:59 23:59 Intake Total 1400 / 1400 1740 / 1740 Balance 1400 / 1400 1740 / 1740 Intake: IV Fluids 1400 / 1400 1500 / 1500 D5% And 0.9% Nacl 1000 Ml 1,000 1000 / 1000 1000 / 1000 ML @ 125 mls/hr IVC .Q8H [facility] Rx#:[id number] Ofirmev 1,000 mg/100 ml 1,000 200 / 200 100 / 100 mg In 100 ml @ 400 mls/hr IVPB Q6HR [facility] Rx#:[id number] Flagyl Premix 500 MG/100 ML 500 100 / 100 100 / 100 mg In 100 ml @ 100 mls/hr IVPB Q8HR [facility] Rx#:[id number] Potassium Chloride 10 mEq/100mL 100 / 100 300 / 300 10 meq In 100 ml @ 100 mls/hr IVPB Q1H [facility] Rx#:[id number] Oral 240 / 240 Other: Stool Size Moderate Small Stool Consistency loose loose Stool Color Brown Brown # Voids 1 6 # Bowel Movements 1 2 Weight 58.2 kg Blood Glucose* 142 159 Patient Weight 04/12/18 23:59 Weight 58.2 kg - General physical appearance well developed, well nourished, no distress - Eyes PERRL, normal ocular movement - ENT normal mucosa, normocephalic - Neck Neck exam: trachea midline - Respiratory normal expansion, clear to auscultation - Cardiovascular Cardiovascular exam: Present: RRR - Abdomen Abdomen: Present: bowel sounds present, soft, distended, tender. Absent: guarding, rebound Abdominal Tenderness: diffusely - Integumentary no rash - Neurologic CN 2-12 grossly intact - Musculoskeletal normal posture - Psychiatric oriented to time, oriented to person, oriented to place, speech is normal, memory intact - Labs 04/12/18 05:01 04/12/18 05:01 Diabetes panel 04/11/18 04/12/18 Range/Units 18:51 05:01 Sodium 138 141 (136-145) mEq/L Potassium 3.2 L 3.1 L (3.5-5.1) mEq/L Chloride 111 H 114 H (98-107) mEq/L Carbon Dioxide 20 L 19 L (23-29) mEq/L BUN 12 9 (8-23) mg/dL Creatinine 0.69 0.61 (0.60-1.20) mg/dL Glucose 68 L 122 H (70-105) mg/dL Calcium 7.5 L 7.6 L (8.6-10.3) mg/dL Calcium panel 04/11/18 04/12/18 Range/Units 18:51 05:01 Calcium 7.5 L 7.6 L (8.6-10.3) mg/dL Phosphorus 2.0 L (2.7-4.5) mg/dL Pituitary panel 04/11/18 04/12/18 Range/Units 18:51 05:01 Sodium 138 141 (136-145) mEq/L Potassium 3.2 L 3.1 L (3.5-5.1) mEq/L Chloride 111 H 114 H (98-107) mEq/L Carbon Dioxide 20 L 19 L (23-29) mEq/L BUN 12 9 (8-23) mg/dL Creatinine 0.69 0.61 (0.60-1.20) mg/dL Glucose 68 L 122 H (70-105) mg/dL Calcium 7.5 L 7.6 L (8.6-10.3) mg/dL Adrenal panel 04/11/18 04/12/18 Range/Units 18:51 05:01 Sodium 138 141 (136-145) mEq/L Potassium 3.2 L 3.1 L (3.5-5.1) mEq/L Chloride 111 H 114 H (98-107) mEq/L Carbon Dioxide 20 L 19 L (23-29) mEq/L BUN 12 9 (8-23) mg/dL Creatinine 0.69 0.61 (0.60-1.20) mg/dL Glucose 68 L 122 H (70-105) mg/dL Calcium 7.5 L 7.6 L (8.6-10.3) mg/dL - Attending Attestation I have personally performed a face to face evaluation on this patient. I have reviewed and agree with the care plan. History and Exam by me shows:
[2018-04-12] MEDS: Gabapentin 100 MG CAPSULE PO SCH (21:16)
[2018-04-12] MEDS: hydrOXYzine pamoate 25 MG CAPSULE PO SCH (21:16)
[2018-04-12] MEDS: D5% in 0.45% NACL w KCl 20 MEQ/1,000 ML MLS IVC SCH (21:17)
[2018-04-12] MEDS: Nicotine 14 MG PATCH.TD24 TD SCH (21:18)
[2018-04-13] MEDS: Acetaminophen IV 1,000 MG/100 ML INFUS..BTL IVPB SCH ×5 (00:06→21:00)
[2018-04-13] MEDS: *HR* Metoprolol 5 MG/5 ML VIAL IVP SCH ×5 (00:07→23:07)
[2018-04-13] MEDS: MetroNIDAZOLE 500 MG/100 ML 500 MG/100 ML BAG IVPB SCH ×4 (00:07→23:05)
[2018-04-13] MEDS: *HR* Heparin 5,000 UNIT/ML VIAL SQ SCH ×3 (04:39→23:07)
[2018-04-13 04:55] LABS: Hematocrit 35.5 % (35.3-44.9); Hemoglobin 12.2 g/dL (11.5-15.4); Mean Corpuscular HGB Conc 34.4 g/dL (31.6-35.5); Mean Corpuscular Hemoglobin 29.9 pg (28.0-33.3); Platelet Count 289 K/mcL (140-400); Red Blood Count 4.08 M/mcL (3.82-4.97); Red Cell Distribution Width 13.7 % (11.5-14.5)
[2018-04-13 05:24] LABS: BUN/Creatinine Ratio 10 (6-26); Blood Urea Nitrogen 5 mg/dL (8-23); Calcium 7.7 mg/dL (8.6-10.3); Carbon Dioxide 16 mEq/L (23-29); Chloride 113 mEq/L (98-107); Glucose 131 mg/dL (70-105); Magnesium 1.3 mg/dL (1.6-2.6); Osmolality,Calculated 287 (280-300); Phosphorous 3.5 mg/dL (2.7-4.5); Potassium 3.1 mEq/L (3.5-5.1); Sodium 139 mEq/L (136-145); eGFR For Non-African Americans > 60 (> 60)
[2018-04-13] MEDS ORDERED: Calcium Gluconate 2,000 MG in 0.9 % Sodium Chloride 100 ML IVPB ONE (07:35)
[2018-04-13] MEDS: D5% in 0.45% NACL w KCl 20 MEQ/1,000 ML MLS IVC SCH ×2 (08:18→23:04)
[2018-04-13] MEDS: Cyclosporine [Restasis] OP SCH (08:19)
[2018-04-13] MEDS: Vancomycin 500 MG, Sodium Chloride IRRigation 250 ML RC SCH (08:20)
[2018-04-13] MEDS: HYDROCORTISONE OP SCH (08:20)
[2018-04-13] MEDS: Pantoprazole 40 MG VIAL IVP SCH (08:20)
[2018-04-13] MEDS: Lisinopril 20 MG TABLET PO SCH (08:20)
[2018-04-13] MEDS: POLYMYXIN B OP SCH (08:20)
[2018-04-13] MEDS: NEOMYCIN OP SCH (08:20)
--- NOTE | 2018-04-13 09:13 | Infectious Disease Progress No ---
Date of Encounter: 04/13/18 Time of Encounter: 09:10 - Assessment and Plan (1) Sepsis Current Visit: Yes Status: Acute The patient had 3 sepsis criteria on admission. Likely secondary to C. difficile colitis. Improved. Afebrile x 24 hours. Tachycardia persists, but improved. White blood cell count is trending down. Blood cultures drawn 04/10/18 are no growth to date 2 sets. Recommendations: General surgery consulted and following. Continue Vancomycin 125mg PO QID. Continue flagyl 500mg IV TID. Discontinue rectal vancomycin. Supportive care per the primary team. Duration of treatment depends on the clinical picture, but likely a total of 10-14 days. C. diff precautions per hospital policy. Monitor renal function and dose-adjust antibiotics. Qualifiers: Sepsis type: sepsis due to unspecified organism Qualified Code(s): A41.9 - Sepsis, unspecified organism (2) Clostridium difficile colitis Current Visit: Yes Status: Acute Likely secondary to recent antibiotic use. Severe based on white blood cell count greater than 15,000, but not fulminant as there are no signs of ileus or toxic megacolon or septic shock. First occurrence. Antibiotic recommendations as above. (3) Abdominal pain Current Visit: Yes Status: Acute Likely secondary to C. difficile colitis. Pain management per the primary team. Qualifiers: Abdominal location: unspecified location Qualified Code(s): R10.9 - Unspe cified abdominal pain (4) Diarrhea Current Visit: Yes Status: Acute Likely secondary to C. difficile colitis. Improved. Qualifiers: Diarrhea type: presumed infectious Qualified Code(s): R19.7 - Diarrhea, unspecified (5) Pancolitis Current Visit: Yes Status: Acute Likely secondary to C. diff. CT abdomen and pelvis showed diffuse colonic wall thickening with pericolonic changes consistent with pancolitis. General surgery consulted and following. (6) CAD (coronary artery disease) Current Visit: No Status: Chronic Qualifiers: Coronary Disease-Associated Artery/Lesion type: [place] artery [place] vs. transplanted heart: [place] heart Associated angina: without angina Qualified Code(s): I25.10 - Atherosclerotic heart disease of [place] coronary artery without angina pectoris (7) Hypertension Current Visit: No Status: Chronic Qualifiers: Hypertension type: essential hypertension Qualified Code(s): I10 - Essential (primary) hypertension (8) Rheumatoid arthritis Current Visit: Yes Status: Chronic Not currently on treatment. Qualifiers: Rheumatoid arthritis location: unspecified site Rheumatoid factor presence: unspecified presence Qualified Code(s): M06.9 - Rheumatoid arthritis, unspecified - Subjective Interval history: Patient seen and examined. No acute events noted overnight. Patient states overall she feels better today, but is tired and not getting much sleep. She does complain of a posterior headache that is not normal for her. She denies any fevers or chills or rigors. Reports some shortness of breath with some chest pressure last night that has resolved. Denies any nausea or vomiting. The diarrhea is improved per patient reports. She states she has had 2 loose watery stools since midnight. She states they seem to be a little bit more formed. She states the abdominal pain is still there, but is improved. She denies any urinary complaints. States her appetite is little bit better. She denies any pain in her joints or extremities at this time. Infect Dis PN-Objective Data - Labs CBC & Chem 7: 04/14/18 06:44 04/14/18 06:44 Labs: Laboratory Results - last 24 hr 04/12/18 04/13/18 04/13/18 11:23 04:13 04:13 WBC 19.4 H RBC 4.08 Hgb 12.2 Hct 35.5 MCV 87.0 MCH 29.9 MCHC 34.4 RDW 13.7 Plt Count 289 MPV 10.0 Sodium 139 Potassium 3.1 L Chloride 113 H Carbon Dioxide 16 L BUN 5 L Creatinine 0.51 L Est GFR ( Amer) > 60 Est GFR (Non-Af Amer) > 60 BUN/Creatinine Ratio 10 Glucose 131 H POC Glucose 159 H Calculated Osmolality 287 Calcium 7.7 L Phosphorus 3.5 Magnesium 1.3 L Cultures: Cultures 04/11/18 00:45 Clostridium difficile Toxin A & B - Final Stool 04/10/18 17:10 Blood Culture - Preliminary Peripheral Venipuncture Culture is incubating and being continuously monitored for growth. Final report to follow. 04/10/18 17:06 Blood Culture - Preliminary Peripheral Venipuncture Culture is incubating and being continuously monitored for growth. Final report to follow. Serology 04/11/18 04/10/18 Range/Units 00:45 16:16 Urine Color Dark Yellow (Yellow) Urine Clarity Slightly Hazy (Clear) Urine pH 6.0 (5.0-8.0) pH Units Ur Specific [place] 1.017 (1.010-1.025) Urine Protein >=300 H (Neg-Trace) mg/dL Urine Glucose (UA) Normal (Normal) mg/dL Urine Ketones Trace H (Negative) mg/dL Urine Blood Large H (Negative) Urine Nitrite Negative (Negative) Urine Bilirubin Small H (Negative) Urine Urobilinogen Normal (Normal) mg/dL Ur Leukocyte Esterase Trace H (Negative) Urine Microscopic RBC TNTC H (0-3) per hpf Urine Microscopic WBC 5-15 H (0-3) per hpf Ur Squamous Epith Cells Many H (None-Few) per lpf Ur Transition Epith Cell Few (None-Few) per hpf Ur Renal Epithelial Cell Few (None-Few) per hpf Urine Bacteria None Seen (None-Few) per hpf Hyaline Casts Few (None-Few) per lpf Granular Casts Few H (None Seen) per lpf Ur Culture Indicated? NO. A (NO) Stl C. cayetanensis PCR Not detected (Not detect) Stool Rotavirus A PCR Not detected (Not detect) Stl Adenov F 40/41 PCR Not detected (Not detect) Stool Astrovirus (PCR) Not detected (Not detect) Stool Campylobacter PCR Not detected (Not detect) Stool Cryptosporidium PCR Not detected (Not detect) Stl Sh Tox Pr E STEC PCR Not detected (Not detect) Stool E coli O157 PCR Not detected (Not detect) Stl Enterotoxigenic E PCR Not detected (Not detect) Stool EPEC (PCR) Not detected (Not detect) Stool EAEC (PCR) Not detected (Not detect) Stl E. histolytica PCR Not detected (Not detect) Stool Giardia Lamblia PCR Not detected (Not detect) Stool Salmonella PCR Not detected (Not detect) Stool Sapovirus (PCR) Not detected (Not detect) Stl P. shigelloides PCR Not detected (Not detect) Stl Shigella/EIEC PCR Not detected (Not detect) St Y.enterocolitica PCR Not detected (Not detect) Stool Vibrio (PCR) Not detected (Not detect) Stl Vibrio cholerae PCR Not detected (Not detect) Stl Norovirus GI/GII PCR Not detected (Not detect) Stl GI Panel (PCR) Com See below C.diff Toxin Gene (PAULO) DETECTED A (Not detect) Exam - Constitutional Vitals: Temp Pulse Resp BP Pulse Ox 98.1 F 106 18 165/92 95 04/13/18 07:36 04/13/18 07:36 04/13/18 07:36 04/13/18 07:36 04/13/18 07:36 General appearance: average body habitus, cooperative, no acute distress - Head Head exam: Present: atraumatic, normal inspection, normocephalic - Eye Eye exam: Present: EOMI, normal appearance, PERRL Pupils: Present: normal accommodation - ENT ENT exam: Present: mucous membranes moist - Neck Neck exam: Present: normal inspection. Absent: meningismus - Respiratory Respiratory exam: Present: CTAB. Absent: rales, respiratory distress, rhonchi, wheezes - Cardiovascular Cardiovascular exam: Present: RRR, +S1, +S2 - GI/Abdominal GI/Abdominal exam: Present: normal bowel sounds, soft, tenderness (Generalized). Absent: distended - Extremities Exam Extremities exam: Present: normal inspection, pedal edema (Trace bilateral lower extremities). Absent: tenderness - Neurological Exam Neurological exam: Present: alert, oriented X3, no focal deficits - Psychiatric Psychiatric exam: Present: normal affect, normal mood - Skin Skin exam: Present: dry, intact, normal color, warm Consult Discharge Plan - Plan Referrals: Amador Jennings MD [Primary Care Provider] - - Attending Attestation I examined this patient and my medical decision-making was reviewed with the Resident Physician. I agree with the documented findings, disposition and treatment plan as described except to the extent set forth below.
[2018-04-13] MEDS ORDERED: Potassium Chloride 40 MEQ, Lidocaine 1% 2 ML in D5% in Water 500 ML IVPB ONE (09:20)
--- NOTE | 2018-04-13 13:00 | Internal Med Progress Note ---
Hospitalist Progress Note - Encounter Date of Encounter: 04/13/18 Time of Encounter: 08:00 - Subjective Interval History: Patient was seen and examined at bedside. Reports she had 2 episode of watery nonbloody diarrhea and night. Abdominal pain has significantly improved. She is tolerating clear liquid diet. Denies fever, chills, nausea, vomiting, chest pain, shortness of breath or palpitations. - Exam Vitals: Temp Pulse Resp BP Pulse Ox 97.8 F 92 18 175/100 93 04/13/18 11:40 04/13/18 11:40 04/13/18 11:40 04/13/18 11:40 04/13/18 11:40 Exam: General: Patient is alert, oriented, no acute distress, Head: atraumatic, normocephalic, Eye: normal appearance, PERRL, no scleral icterus, no conjunctival injection ENT: mucous membranes moist, normal external ear exam Neck: normal inspection, trachea midline, full ROM, no carotid bruits Chest: normal inspection, symmetric chest rise Respiratory: Good respiratory effort. Bilateral breath sounds are clear without wheezing, crackles, or rhonchi. Cardiovascular: Regular rate and rhythm. s1 and s2 No clicks, rubs, gallops, or murmors. Abdomen: Bowel sounds present normoactive x-4 quadrants. Abdomen is soft, no ndistended. Diffusely tender on palpation,- improved No guarding or rebound. No organomegaly noted, obese musculoskeletal: Spontaneously moving all extremities. no edema, no calf tenderness Skin: warm, dry, intact. Neuro: Alert and oriented x4. No focal deficit Psych: Patient's affect is normal - Assessment and Plan (1) Sepsis Current Visit: Yes Status: Acute Assessment and Plan: Sepsis secondary to severe C. difficile colitis As evidenced by tachycardia , fever ( resolved) and leukocytosis- trending down We will continue IV fluids Blood cultures obtained in the emergency departmentno growth to date Lactic acid within normal limit We will continue vancomycin by mouth and metronidazole (2) Clostridium difficile colitis Current Visit: Yes Status: Acute Assessment and Plan: Abdominal pain and diarrhea secondary to severe C. difficile colitis. CT abdomen and pelvis with pancolitis. Was started on oral vancomycin and IV metronidazole On clear liquid diet and is tolerating. Surgery and ID on board CT abdomen and pelvis IMPRESSION: Diffuse colonic wall thickening and pericolonic inflammatory changes is consistent with pancolitis. Findings are likely infectious or inflammatory in etiology. (3) Hypertension Current Visit: No Status: Chronic Assessment and Plan: . We will keep her nothing by mouth and continue with IV medications (4) Smoker Current Visit: Yes Status: Acute Assessment and Plan: Nicotine patch provided. Was counseled (5) Hypokalemia Current Visit: Yes Status: Acute Assessment and Plan: Potassium 3.1- Replaced/ follow in a.m. (6) Hypocalcemia Current Visit: Yes Status: Acute Assessment and Plan: Ionized calcium of 1.13 Replaced (7) Hypophosphatemia Current Visit: Yes Status: Acute Assessment and Plan: Phosphorus level of 2 Replaced (8) Hypomagnesemia Current Visit: Yes Status: Acute Assessment and Plan: 1.3 replaced will follow in AM (9) DVT prophylaxis Current Visit: Yes Status: Acute Assessment and Plan: scds and heparin sc - Time Spent with Patient Total time spent is greater than 50% in coordination of care (as documented) at patient's floor/unit and/or counseling patient: Internal Medicine: Result - Labs CBC & Chem 7: 04/13/18 04:13 04/13/18 04:13 Labs: Short CBC 04/13/18 Range/Units 04:13 WBC 19.4 H (4.3-11.1) K/mcL Hgb 12.2 (11.5-15.4) g/dL Hct 35.5 (35.3-44.9) % Plt Count 289 (140-400) K/mcL BMP 04/13/18 04:13 Sodium 139 Potassium 3.1 L Chloride 113 H Carbon Dioxide 16 L BUN 5 L Creatinine 0.51 L Glucose 131 H Calcium 7.7 L - ABG Interpretation ABG results: PT/INR, D-dimer PT 16.5 Seconds (9.4-12.1) H 04/11/18 07:36 Consult Discharge Plan - Plan Referrals: Amador Jennings MD [Primary Care Provider] - (1) Sepsis Qualifiers: Sepsis type: sepsis due to unspecified organism Qualified Code(s): A41.9 - Sepsis, unspecified organism (3) Hypertension Qualifiers: Hypertension type: essential hypertension Qualified Code(s): I10 - Essential (primary) hypertension
[2018-04-13] MEDS: Vancomycin Oral Soln 125 MG/2.5 ML UDC PO SCH ×4 (13:49→20:00)
--- NOTE | 2018-04-13 18:26 | General Surgery Progress Note ---
Date of Encounter: 04/13/18 Time of Encounter: 18:24 - Assessment and Plan (1) Clostridium difficile colitis Current Visit: Yes Status: Acute patients abdominal pain is improved compared to yesterday but is not resolved and she is still distended, she has more pain than she claims and is still very tender to exam apparently ID was consulted, abx [id number] per them prn pain control ambulate gi/dvt prophylaxis wbc decreasing appropriately, trend serial abdominal exams do not advance diet at this point (2) DVT prophylaxis Current Visit: Yes Status: Acute (3) Leukocytosis Current Visit: Yes Status: Acute improving Qualifiers: Leukocytosis type: unspecified Qualified Code(s): D72.829 - Elevated white blood cell count, unspecified Subjective Patient reports: no new complaints, still having pain, pain is less, tolerating liquids well, flatus, bowel movement, afebrile Objective Vital Signs - Last 8 Hours Temp Pulse Resp BP Pulse Ox 04/13/18 16:33 99.4 F 103 18 163/82 96 04/13/18 11:40 97.8 F 92 18 175/100 93 Intake and Output 04/13/18 04/13/18 04/13/18 07:59 15:59 23:59 Intake Total 1300 / 1300 204 / 204 240 / 240 Output Total 0 / 0 Balance 1300 / 1300 204 / 204 240 / 240 Intake: IV Fluids 1300 / 1300 204 / 204 KCl 20mEq IN D5%-0.45 NACL 20 1000 / 1000 meq In 1,000 ml @ 100 mls/hr IVC .Q10H [facility] Rx#:[id number] Ofirmev 1,000 mg/100 ml 1,000 200 / 200 mg In 100 ml @ 400 mls/hr IVPB Q6HR [facility] Rx#:[id number] Magnesium Sulfate 2 GM In 0.9 % 104 / 104 Sodium Chloride 100 ML @ 104 mls/hr IVPB ONCE [facility] Rx#: [id number] Flagyl Premix 500 MG/100 ML 500 100 / 100 100 / 100 mg In 100 ml @ 100 mls/hr IVPB Q8HR [facility] Rx#:[id number] Oral 0 / 0 240 / 240 Output: Urine 0 / 0 Other: Stool Size Large Small Stool Consistency liquid liquid Stool Characteristics Mucoid Normal for Patient Stool Color Green Brown # Voids 1 Weight 60.1 kg Patient Weight 04/13/18 23:59 Weight 60.1 kg - General physical appearance well nourished, no distress - Eyes PERRL, normal ocular movement - ENT normal mucosa, normocephalic - Neck Neck exam: trachea midline - Respiratory normal expansion, clear to auscultation - Cardiovascular Cardiovascular exam: Present: RRR - Abdomen Abdomen: Present: bowel sounds present, soft, distended, tender (patient reports no pain but she is still very tender to abdominal exam). Absent: guarding, rebound - Integumentary no rash, no growths - Neurologic CN 2-12 grossly intact - Musculoskeletal normal posture - Psychiatric oriented to time, oriented to person, oriented to place, speech is normal, memory intact - Labs 04/13/18 04:13 04/13/18 04:13 Diabetes panel 04/13/18 Range/Units 04:13 Sodium 139 (136-145) mEq/L Potassium 3.1 L (3.5-5.1) mEq/L Chloride 113 H (98-107) mEq/L Carbon Dioxide 16 L (23-29) mEq/L BUN 5 L (8-23) mg/dL Creatinine 0.51 L (0.60-1.20) mg/dL Glucose 131 H (70-105) mg/dL Calcium 7.7 L (8.6-10.3) mg/dL Calcium panel 04/13/18 Range/Units 04:13 Calcium 7.7 L (8.6-10.3) mg/dL Phosphorus 3.5 (2.7-4.5) mg/dL Pituitary panel 04/13/18 Range/Units 04:13 Sodium 139 (136-145) mEq/L Potassium 3.1 L (3.5-5.1) mEq/L Chloride 113 H (98-107) mEq/L Carbon Dioxide 16 L (23-29) mEq/L BUN 5 L (8-23) mg/dL Creatinine 0.51 L (0.60-1.20) mg/dL Glucose 131 H (70-105) mg/dL Calcium 7.7 L (8.6-10.3) mg/dL Adrenal panel 04/13/18 Range/Units 04:13 Sodium 139 (136-145) mEq/L Potassium 3.1 L (3.5-5.1) mEq/L Chloride 113 H (98-107) mEq/L Carbon Dioxide 16 L (23-29) mEq/L BUN 5 L (8-23) mg/dL Creatinine 0.51 L (0.60-1.20) mg/dL Glucose 131 H (70-105) mg/dL Calcium 7.7 L (8.6-10.3) mg/dL Consult Discharge Plan - Plan Referrals: Amador Jennings MD [Primary Care Provider] -
[2018-04-13] MEDS: Gabapentin 100 MG CAPSULE PO SCH (20:00)
[2018-04-13] MEDS: Acetaminophen/Aspirin/Caffeine TABLET PO PRN (20:00)
[2018-04-13] MEDS: hydrOXYzine pamoate 25 MG CAPSULE PO SCH (20:00)
[2018-04-13] MEDS: Nicotine 14 MG PATCH.TD24 TD SCH (20:04)
[2018-04-13] MEDS: Latanoprost 2.5 ML BOTTLE BOTH EYES SCH (23:07)
[2018-04-13] MEDS: OXYCODONE Oral CONC 10 MG/0.5 ML ORAL.SYG SL PRN (23:08)
[2018-04-14] MEDS: *HR* Heparin 5,000 UNIT/ML VIAL SQ SCH ×3 (05:02→20:16)
[2018-04-14] MEDS: *HR* Metoprolol 5 MG/5 ML VIAL IVP SCH ×3 (05:02→17:03)
[2018-04-14] MEDS: Acetaminophen/Aspirin/Caffeine TABLET PO PRN (05:02)
[2018-04-14] MEDS: Acetaminophen IV 1,000 MG/100 ML INFUS..BTL IVPB SCH (06:15)
[2018-04-14 07:13] LABS: Hematocrit 37.1 % (35.3-44.9); Hemoglobin 12.8 g/dL (11.5-15.4); Mean Corpuscular HGB Conc 34.5 g/dL (31.6-35.5); Mean Corpuscular Hemoglobin 29.9 pg (28.0-33.3); Mean Corpuscular Volume 86.7 fL (83.0-100.0); Platelet Count 359 K/mcL (140-400); Red Blood Count 4.28 M/mcL (3.82-4.97); Red Cell Distribution Width 13.8 % (11.5-14.5)
[2018-04-14 07:17] LABS: BUN/Creatinine Ratio 5 (6-26); Blood Urea Nitrogen 3 mg/dL (8-23); Calcium 8.1 mg/dL (8.6-10.3); Carbon Dioxide 19 mEq/L (23-29); Chloride 113 mEq/L (98-107); Glucose 136 mg/dL (70-105); Magnesium 1.6 mg/dL (1.6-2.6); Osmolality,Calculated 287 (280-300); Phosphorous 3.5 mg/dL (2.7-4.5); Potassium 3.8 mEq/L (3.5-5.1); Sodium 139 mEq/L (136-145); eGFR For Non-African Americans > 60 (> 60)
[2018-04-14] MEDS: Lisinopril 20 MG TABLET PO SCH (09:12)
[2018-04-14] MEDS: Vancomycin Oral Soln 125 MG/2.5 ML UDC PO SCH ×4 (09:12→20:08)
[2018-04-14] MEDS: MetroNIDAZOLE 500 MG/100 ML 500 MG/100 ML BAG IVPB SCH (09:12)
[2018-04-14] MEDS: OXYCODONE Oral CONC 10 MG/0.5 ML ORAL.SYG SL PRN (09:12)
[2018-04-14] MEDS: D5% in 0.45% NACL w KCl 20 MEQ/1,000 ML MLS IVC SCH ×3 (09:13→19:37)
[2018-04-14] MEDS: Cyclosporine [Restasis] OP SCH (09:14)
[2018-04-14] MEDS: POLYMYXIN B OP SCH (09:14)
[2018-04-14] MEDS: HYDROCORTISONE OP SCH (09:14)
[2018-04-14] MEDS: NEOMYCIN OP SCH (09:14)
[2018-04-14] MEDS: Pantoprazole 40 MG VIAL IVP SCH (09:15)
--- NOTE | 2018-04-14 10:42 | Internal Med Progress Note ---
Hospitalist Progress Note - Encounter Date of Encounter: 04/14/18 Time of Encounter: 08:40 - Subjective Interval History: Patient was seen and examined at bedside. She still has abdominal tenderness. He has had 5-6 bowel movements in the past 24 hours. She reports that her stools are becoming more formed. Denies melena, hematochezia. Is inquiring about increasing her diet. Is tolerating clear liquid diet without nausea or vomiting. She denies fever, chills, chest pain, shortness of breath or palpitations. - Exam Vitals: Temp Pulse Resp BP Pulse Ox 98.1 F 91 19 125/73 98 04/14/18 07:13 04/14/18 09:52 04/14/18 07:13 04/14/18 07:13 04/14/18 07:13 Exam: General: Patient is alert, oriented, no acute distress, Head: atraumatic, normocephalic, Eye: normal appearance, PERRL, no scleral icterus, no conjunctival injection ENT: mucous membranes moist, normal external ear exam Neck: normal inspection, trachea midline, full ROM, no carotid bruits Chest: normal inspection, symmetric chest rise Respiratory: Good respiratory effort. Bilateral breath sounds are clear without wheezing, crackles, or rhonchi. Cardiovascular: Regular rate and rhythm. s1 and s2 No clicks, rubs, gallops, or murmors. Abdomen: Bowel sounds present normoactive x-4 quadrants. Abdomen is soft, nondistended. Diffusely tender on palpation,- improved No guarding or rebound. No organomegaly noted, obese musculoskeletal: Spontaneously moving all extremities. no edema, no calf tende rness Skin: warm, dry, intact. Neuro: Alert and oriented x4. No focal deficit Psych: Patient's affect is normal - Assessment and Plan (1) Sepsis Current Visit: Yes Status: Acute Assessment and Plan: Sepsis secondary to severe C. difficile colitis As evidenced by tachycardia , fever ( resolved) and leukocytosis- trending down We will continue IV fluids- watch for overload Blood cultures obtained in the emergency departmentno growth to date Lactic acid within normal limit We will continue vancomycin by mouth and metronidazole (2) Clostridium difficile colitis Current Visit: Yes Status: Acute Assessment and Plan: Abdominal pain and diarrhea secondary to severe C. difficile colitis. CT abdomen and pelvis with pancolitis. Was started on oral vancomycin and IV metronidazole On clear liquid diet and is tolerating- will hold off increasing as she still has abdominal pain and diarrhea as per surgery [facility] Surgery and ID on board CT abdomen and pelvis IMPRESSION: Diffuse colonic wall thickening and pericolonic inflammatory changes is consistent with pancolitis. Findings are likely infectious or inflammatory in etiology. (3) Hypertension Current Visit: No Status: Chronic Assessment and Plan: . We will keep her nothing by mouth and continue with IV medications (4) Smoker Current Visit: Yes Status: Acute Assessment and Plan: Nicotine patch provided. Was counseled (5) Hypokalemia Current Visit: Yes Status: Resolved (6) Hypocalcemia Current Visit: Yes Status: Resolved (7) Hypophosphatemia Current Visit: Yes Status: Resolved (8) Hypomagnesemia Current Visit: Yes Status: Resolved (9) DVT prophylaxis Current Visit: Yes Status: Acute Assessment and Plan: scds and heparin sc - Time Spent with Patient Total time spent is greater than 50% in coordination of care (as documented) at patient's floor/unit and/or counseling patient: Internal Medicine: Result - Labs CBC & Chem 7: 04/14/18 06:44 04/14/18 06:44 Labs: Short CBC 04/14/18 Range/Units 06:44 WBC 20.0 H (4.3-11.1) K/mcL Hgb 12.8 (11.5-15.4) g/dL Hct 37.1 (35.3-44.9) % Plt Count 359 (140-400) K/mcL [facility] 04/14/18 06:44 Sodium 139 Potassium 3.8 Chloride 113 H Carbon Dioxide 19 L BUN 3 L Creatinine 0.56 L Glucose 136 H Calcium 8.1 L - ABG Interpretation ABG results: PT/INR, D-dimer PT 16.5 Seconds (9.4-12.1) H 04/11/18 07:36 Consult Discharge Plan - Plan Referrals: Amador Jennings MD [Primary Care Provider] - Prescriptions: Vancomycin Oral Soln [Firvanq] 125 mg PO QID 10 Days #40 udc (1) Sepsis Qualifiers: Sepsis type: sepsis due to unspecified organism Qualified Code(s): A41.9 - Sepsis, unspecified organism (3) Hypertension Qualifiers: Hypertension type: essential hypertension Qualified Code(s): I10 - Essential (primary) hypertension
[2018-04-14] MEDS ORDERED: Loratadine/Pseudophed (12 HR) 1 EACH TABLET PO PRN (14:35)
--- NOTE | 2018-04-14 15:02 | Infectious Disease Progress No ---
Date of Encounter: 04/14/18 Time of Encounter: 15:01 - Assessment and Plan (1) Sepsis Current Visit: Yes Status: Acute The patient had 3 sepsis criteria on admission. Likely secondary to C. difficile colitis. Improved. Afebrile x 24 hours. Tachycardia persists, but improved. White blood cell count is trending down. Blood cultures drawn 04/10/18 are no growth to date 2 sets. Recommendations: General surgery consulted and following. Continue Vancomycin 125mg PO QID. Okay to DC Flagyl Discontinue rectal vancomycin. Supportive care per the primary team. Duration of treatment depends on the clinical picture, but likely a total of 10- 14 days. C. diff precautions per hospital policy. Monitor renal function and dose-adjust antibiotics. Qualifiers: Sepsis type: sepsis due to unspecified organism Qualified Code(s): A41.9 - Sepsis, unspecified organism (2) Clostridium difficile colitis Current Visit: Yes Status: Acute Likely secondary to recent antibiotic use. Severe based on white blood cell count greater than 15,000, but not fulminant as there are no signs of ileus or toxic megacolon or septic shock. First occurrence. Antibiotic recommendations as above. (3) Abdominal pain Current Visit: Yes Status: Acute Likely secondary to C. difficile colitis. Pain management per the primary team. Qualifiers: Abdominal location: unspecified location Qualified Code(s): R10.9 - Unspecified abdominal pain (4) Diarrhea Current Visit: Yes Status: Acute Likely secondary to C. difficile colitis. Improved. Qualifiers: Diarrhea type: presumed infectious Qualified Code(s): R19.7 - Diarrhea, unspecified (5) Pancolitis Current Visit: Yes Status: Acute Likely secondary to C. diff. CT abdomen and pelvis showed diffuse colonic wall thickening with pericolonic changes consistent with pancolitis. General surgery consulted and following. (6) CAD (coronary artery disease) Current Visit: No Status: Chronic Qualifiers: Coronary Disease-Associated Artery/Lesion type: [place] artery [place] vs. transplanted heart: [place] heart Associated angina: without angina Qualified Code(s): I25.10 - Atherosclerotic heart disease of [place] coronary artery without angina pectoris (7) Hypertension Current Visit: No Status: Chronic Qualifiers: Hypertension type: essential hypertension Qualified Code(s): I10 - Essential (primary) hypertension (8) Rheumatoid arthritis Current Visit: Yes Status: Chronic Not currently on treatment. Qualifiers: Rheumatoid arthritis location: unspecified site Rheumatoid factor presence: unspecified presence Qualified Code(s): M06.9 - Rheumatoid arthritis, unspecified - Subjective Interval history: Patient seen and examined. Clinically doing much better. Was sitting in the chair. Advanced diet. No chest pain or shortness of breath. Still having about 7-8 bowel movements a day. in the last 24 hrs: Afebrile, tachycardic WBC stable at 20,000, CR 0.56 Infect Dis PN-Objective Data - Labs CBC & Chem 7: 04/14/18 06:44 04/14/18 06:44 Labs: Laboratory Results - last 24 hr 04/14/18 04/14/18 06:44 06:44 WBC 20.0 H RBC 4.28 Hgb 12.8 Hct 37.1 MCV 86.7 MCH 29.9 MCHC 34.5 RDW 13.8 Plt Count 359 MPV 10.0 Sodium 139 Potassium 3.8 Chloride 113 H Carbon Dioxide 19 L BUN 3 L Creatinine 0.56 L Est GFR ( Amer) > 60 Est GFR (Non-Af Amer) > 60 BUN/Creatinine Ratio 5 L Glucose 136 H Calculated Osmolality 287 Calcium 8.1 L Phosphorus 3.5 Magnesium 1.6 Cultures: Cultures 04/11/18 00:45 Clostridium difficile Toxin A & B - Final Stool 04/10/18 17:10 Blood Culture - Preliminary Peripheral Venipuncture Culture is incubating and being continuously monitored for growth. Final report to follow. 04/10/18 17:06 Blood Culture - Preliminary Peripheral Venipuncture Culture is incubating and being continuously monitored for growth. Final report to follow. Serology 04/11/18 04/10/18 Range/Units 00:45 16:16 Urine Color Dark Yellow (Yellow) Urine Clarity Slightly Hazy (Clear) Urine pH 6.0 (5.0-8.0) pH Units Ur Specific [place] 1.017 (1.010-1.025) Urine Protein >=300 H (Neg-Trace) mg/dL Urine Glucose (UA) Normal (Normal) mg/dL Urine Ketones Trace H (Negative) mg/dL Urine Blood Large H (Negative) Urine Nitrite Negative (Negative) Urine Bilirubin Small H (Negative) Urine Urobilinogen Normal (Normal) mg/dL Ur Leukocyte Esterase Trace H (Negative) Urine Microscopic RBC TNTC H (0-3) per hpf Urine Microscopic WBC 5-15 H (0-3) per hpf Ur Squamous Epith Cells Many H (None-Few) per lpf Ur Transition Epith Cell Few (None-Few) per hpf Ur Renal Epithelial Cell Few (None-Few) per hpf Urine Bacteria None Seen (None-Few) per hpf Hyaline Casts Few (None-Few) per lpf Granular Casts Few H (None Seen) per lpf Ur Culture Indicated? NO. A (NO) Stl C. cayetanensis PCR Not detected (Not detect) Stool Rotavirus A PCR Not detected (Not detect) Stl Adenov F 40/41 PCR Not detected (Not detect) Stool Astrovirus (PCR) Not detected (Not detect) Stool Campylobacter PCR Not detected (Not detect) Stool Cryptosporidium PCR Not detected (Not detect) Stl Sh Tox Pr E STEC PCR Not detected (Not detect) Stool E coli O157 PCR Not detected (Not detect) Stl Enterotoxigenic E PCR Not detected (Not detect) Stool EPEC (PCR) Not detected (Not detect) Stool EAEC (PCR) Not detected (Not detect) Stl E. histolytica PCR Not detected (Not detect) Stool Giardia Lamblia PCR Not detected (Not detect) Stool Salmonella PCR Not detected (Not detect) Stool Sapovirus (PCR) Not detected (Not detect) Stl P. shigelloides PCR Not detected (Not detect) Stl Shigella/EIEC PCR Not detected (Not detect) St Y.enterocolitica PCR Not detected (Not detect) Stool Vibrio (PCR) Not detected (Not detect) Stl Vibrio cholerae PCR Not detected (Not detect) Stl Norovirus GI/GII PCR Not detected (Not detect) Stl GI Panel (PCR) Com See below C.diff Toxin Gene (PAULO) DETECTED A (Not detect) Exam - Constitutional Vitals: Temp Pulse Resp BP Pulse Ox 97.8 F 107 18 148/96 99 04/14/18 11:26 04/14/18 11:26 04/14/18 11:26 04/14/18 11:26 04/14/18 11:26 General appearance: no acute distress, no febrile - Head Head exam: Present: atraumatic, normocephalic - Respiratory Respiratory exam: Present: CTAB. Absent: wheezes - Cardiovascular Cardiovascular exam: Present: RRR, +S1, +S2 - GI/Abdominal GI/Abdominal exam: Present: normal bowel sounds, soft. Absent: tenderness Consult Discharge Plan - Plan Referrals: Amador Jennings MD [Primary Care Provider] - Prescriptions: RX: Vancomycin Oral Soln [Firvanq] 125 mg PO QID 10 Days #40 udc
[2018-04-14] MEDS ORDERED: Nitroglycerin 0.4 MG TAB.SUBL SL PRN (16:01)
[2018-04-14] MEDS ORDERED: Lifitegrast [Xiidra] 1 DROP OP PRN (16:01)
--- NOTE | 2018-04-14 16:52 | General Surgery Progress Note ---
Date of Encounter: 04/14/18 Time of Encounter: 12:25 - Assessment and Plan (1) Clostridium difficile colitis Current Visit: Yes Status: Acute patients abdominal pain is improved compared to yesterday, advance to fulls continue abx per ID recommendations patient although wbc same as yesterday symptomatically she is improved. prn pain control serial abdominal exams, will continue to follow (2) DVT prophylaxis Current Visit: Yes Status: Acute heparin sq (3) Leukocytosis Current Visit: Yes Status: Acute same as yesterday, monitor Qualifiers: Leukocytosis type: unspecified Qualified Code(s): D72.829 - Elevated white blood cell count, unspecified Subjective Patient reports: no new complaints, feels better, still having pain, pain is less, tolerating liquids well, flatus, diarrhea Objective Vital Signs - Last 8 Hours Temp Pulse Resp BP Pulse Ox 04/14/18 15:17 98.2 F 110 18 152/81 96 04/14/18 11:26 97.8 F 107 18 148/96 99 04/14/18 09:52 91 Intake and Output 04/14/18 04/14/18 04/14/18 07:59 15:59 23:59 Intake Total 300 / 300 2000 / 2000 Output Total 400 / 400 Balance -100 / -100 1999 / 2000 Intake: IV Fluids 300 / 300 2000 / 2000 KCl 20mEq IN D5%-0.45 NACL 20 2000 / 2000 meq In 1,000 ml @ 100 mls/hr IVC .Q10H JENNIFFER Rx#:[id number] Ofirmev 1,000 mg/100 ml 1,000 200 / 200 mg In 100 ml @ 400 mls/hr IVPB Q6HR JENNIFFER Rx#:[id number] Flagyl Premix 500 MG/100 ML 500 100 / 100 mg In 100 ml @ 100 mls/hr IVPB Q8HR JENNIFFER Rx#:[id number] Output: Urine 400 / 400 Other: Stool Size Moderate Moderate Stool Consistency loose loose liquid Stool Color Brown Brown # Voids 1 # Bowel Movements 1 1 Weight 60.1 kg Patient Weight 04/14/18 23:59 Weight 60.1 kg - General physical appearance well developed, well nourished, no distress, no pain - Eyes PERRL, normal ocular movement - ENT normal mucosa, normocephalic - Neck Neck exam: trachea midline - Respiratory normal expansion, clear to auscultation - Cardiovascular Cardiovascular exam: Present: RRR - Abdomen Abdomen: Present: bowel sounds present, soft, distended, tender (less than yesterday). Absent: guarding, rebound - Integumentary no rash, no growths - Neurologic CN 2-12 grossly intact - Musculoskeletal normal posture - Psychiatric oriented to time, oriented to person, oriented to place, speech is normal - Labs 04/14/18 06:44 04/14/18 06:44 Diabetes panel 04/14/18 Range/Units 06:44 Sodium 139 (136-145) mEq/L Potassium 3.8 (3.5-5.1) mEq/L Chloride 113 H (98-107) mEq/L Carbon Dioxide 19 L (23-29) mEq/L BUN 3 L (8-23) mg/dL Creatinine 0.56 L (0.60-1.20) mg/dL Glucose 136 H (70-105) mg/dL Calcium 8.1 L (8.6-10.3) mg/dL Calcium panel 04/14/18 Range/Units 06:44 Calcium 8.1 L (8.6-10.3) mg/dL Phosphorus 3.5 (2.7-4.5) mg/dL Pituitary panel 04/14/18 Range/Units 06:44 Sodium 139 (136-145) mEq/L Potassium 3.8 (3.5-5.1) mEq/L Chloride 113 H (98-107) mEq/L Carbon Dioxide 19 L (23-29) mEq/L BUN 3 L (8-23) mg/dL Creatinine 0.56 L (0.60-1.20) mg/dL Glucose 136 H (70-105) mg/dL Calcium 8.1 L (8.6-10.3) mg/dL Adrenal panel 04/14/18 Range/Units 06:44 Sodium 139 (136-145) mEq/L Potassium 3.8 (3.5-5.1) mEq/L Chloride 113 H (98-107) mEq/L Carbon Dioxide 19 L (23-29) mEq/L BUN 3 L (8-23) mg/dL Creatinine 0.56 L (0.60-1.20) mg/dL Glucose 136 H (70-105) mg/dL Calcium 8.1 L (8.6-10.3) mg/dL Consult Discharge Plan - Plan Referrals: Amador Jennings MD [Primary Care Provider] - Prescriptions: Vancomycin Oral Soln [Firvanq] 125 mg PO QID 10 Days #40 [facility] [place]
[2018-04-14] MEDS: Gabapentin 100 MG CAPSULE PO SCH (20:07)
[2018-04-14] MEDS: hydrOXYzine pamoate 25 MG CAPSULE PO SCH (20:08)
[2018-04-14] MEDS: Nicotine 14 MG PATCH.TD24 TD SCH (20:08)
[2018-04-14] MEDS: Latanoprost 2.5 ML BOTTLE BOTH EYES SCH (20:09)
[2018-04-15] MEDS: *HR* Metoprolol 5 MG/5 ML VIAL IVP SCH ×3 (00:15→11:15)
[2018-04-15] MEDS: Acetaminophen/Aspirin/Caffeine TABLET PO PRN (05:05)
[2018-04-15] MEDS: *HR* Heparin 5,000 UNIT/ML VIAL SQ SCH ×3 (05:05→21:44)
[2018-04-15 05:06] LABS: Hematocrit 35.2 % (35.3-44.9); Mean Corpuscular HGB Conc 34.1 g/dL (31.6-35.5); Mean Corpuscular Hemoglobin 30.1 pg (28.0-33.3); Mean Corpuscular Volume 88.2 fL (83.0-100.0); Mean Platelet Volume 9.8 fL (9.4-12.4); Platelet Count 355 K/mcL (140-400); Red Blood Count 3.99 M/mcL (3.82-4.97); Red Cell Distribution Width 14.4 % (11.5-14.5)
[2018-04-15] MEDS: D5% in 0.45% NACL w KCl 20 MEQ/1,000 ML MLS IVC SCH (05:06)
[2018-04-15 05:28] LABS: BUN/Creatinine Ratio 5 (6-26); Blood Urea Nitrogen 3 mg/dL (8-23); Calcium 8.3 mg/dL (8.6-10.3); Carbon Dioxide 18 mEq/L (23-29); Chloride 112 mEq/L (98-107); Glucose 112 mg/dL (70-105); Magnesium 1.5 mg/dL (1.6-2.6); Osmolality,Calculated 283 (280-300); Phosphorous 3.5 mg/dL (2.7-4.5); Sodium 138 mEq/L (136-145); eGFR For Non-African Americans > 60 (> 60)
[2018-04-15] MEDS: Lisinopril 20 MG TABLET PO SCH (08:38)
[2018-04-15] MEDS: Vancomycin Oral Soln 125 MG/2.5 ML UDC PO SCH ×4 (08:38→21:45)
[2018-04-15] MEDS: Pantoprazole 40 MG VIAL IVP SCH (08:38)
[2018-04-15] MEDS: Fluticasone Propionate Nasal 50 MCG/SPRAY BOTTLE NS SCH (08:39)
[2018-04-15] MEDS: NEOMYCIN OP SCH (08:39)
[2018-04-15] MEDS: HYDROCORTISONE OP SCH (08:39)
[2018-04-15] MEDS: POLYMYXIN B OP SCH (08:39)
[2018-04-15] MEDS: Cyclosporine [Restasis] OP SCH (08:39)
[2018-04-15] MEDS: OXYCODONE Oral CONC 10 MG/0.5 ML ORAL.SYG SL PRN (09:02)
--- NOTE | 2018-04-15 11:41 | General Surgery Progress Note ---
Date of Encounter: 04/15/18 Time of Encounter: 11:39 - Assessment and Plan (1) Clostridium difficile colitis Current Visit: Yes Status: Acute tolerated fulls no abdominal pain today ok regular diet abx per ID (2) DVT prophylaxis Current Visit: Yes Status: Acute heparin sq (3) Leukocytosis Current Visit: Yes Status: Acute continues to improve Qualifiers: Leukocytosis type: unspecified Qualified Code(s): D72.829 - Elevated white blood cell count, unspecified Subjective Patient reports: no new complaints, feels better, tolerating liquids well, flatus, bowel movement, afebrile Objective Vital Signs - Last 8 Hours Temp Pulse Resp BP Pulse Ox 04/15/18 11:04 97.9 F 96 18 143/93 97 04/15/18 07:58 98.5 F 91 20 151/92 100 04/15/18 04:35 103 04/15/18 04:09 98.2 F 118 20 141/87 97 Intake and Output 04/14/18 04/15/18 04/15/18 23:59 07:59 15:59 Intake Total 1240 / 1240 1000 / 1000 1170 / 1170 Output Total 300 / 300 Balance 1240 / 1240 700 / 700 1170 / 1170 Intake: IV Fluids 1000 / 1000 1000 / 1000 690 / 690 KCl 20mEq IN D5%-0.45 NACL 20 1000 / 1000 1000 / 1000 690 / 690 meq In 1,000 ml @ 100 mls/hr IVC .Q10H JENNIFFER Rx#:[id number] Oral 240 / 240 480 / 480 Output: Urine 300 / 300 Other: Meal Dinner FULL LIQUID Percent of Meal Consumed 75% 0% Stool Size Moderate Stool Consistency soft Stool Color Brown # Bowel Movements 1 Weight 60.2 kg Patient Weight 04/15/18 23:59 Weight 60.2 kg - General physical appearance well developed, well nourished, no distress, no pain - Eyes PERRL, normal ocular movement - ENT normal mucosa - Neck Neck exam: trachea midline - Respiratory normal expansion, clear to auscultation - Cardiovascular Cardiovascular exam: Present: RRR - Abdomen Abdomen: Present: bowel sounds present, soft, non tender. Absent: distended - Integumentary no rash, no growths - Neurologic CN 2-12 grossly intact - Musculoskeletal normal gait, normal posture - Psychiatric oriented to time, oriented to person, oriented to place, speech is normal, memor y intact - Labs 04/15/18 04:49 04/15/18 04:49 Diabetes panel 04/15/18 Range/Units 04:49 Sodium 138 (136-145) mEq/L Potassium 4.0 (3.5-5.1) mEq/L Chloride 112 H (98-107) mEq/L Carbon Dioxide 18 L (23-29) mEq/L BUN 3 L (8-23) mg/dL Creatinine 0.55 L (0.60-1.20) mg/dL Glucose 112 H (70-105) mg/dL Calcium 8.3 L (8.6-10.3) mg/dL Calcium panel 04/15/18 Range/Units 04:49 Calcium 8.3 L (8.6-10.3) mg/dL Phosphorus 3.5 (2.7-4.5) mg/dL Pituitary panel 04/15/18 Range/Units 04:49 Sodium 138 (136-145) mEq/L Potassium 4.0 (3.5-5.1) mEq/L Chloride 112 H (98-107) mEq/L Carbon Dioxide 18 L (23-29) mEq/L BUN 3 L (8-23) mg/dL Creatinine 0.55 L (0.60-1.20) mg/dL Glucose 112 H (70-105) mg/dL Calcium 8.3 L (8.6-10.3) mg/dL Adrenal panel 04/15/18 Range/Units 04:49 Sodium 138 (136-145) mEq/L Potassium 4.0 (3.5-5.1) mEq/L Chloride 112 H (98-107) mEq/L Carbon Dioxide 18 L (23-29) mEq/L BUN 3 L (8-23) mg/dL Creatinine 0.55 L (0.60-1.20) mg/dL Glucose 112 H (70-105) mg/dL Calcium 8.3 L (8.6-10.3) mg/dL Consult Discharge Plan - Plan Referrals: Sophia Sawant MD [Partnered Physician] - Ariadna Flowers MD [Partnered Physician] - 04/22/18 1:00 pm Prescriptions: Vancomycin Oral Soln [Firvanq] 125 mg PO QID 10 Days #40 [facility] [place]
--- NOTE | 2018-04-15 12:38 | Internal Med Progress Note ---
Hospitalist Progress Note - Encounter Date of Encounter: 04/15/18 Time of Encounter: 12:36 - Subjective Interval History: Patient was seen and examined at bedside. Her abdominal pain has improved. Tolerated full liquid diet. Has had 2 bowel movements today which are more formed than yesterday. Denies nausea, vomiting, chest pain, shortness of breath, palpitations. Pain is controlled - Exam Vitals: Temp Pulse Resp BP Pulse Ox 97.9 F 96 18 143/93 97 04/15/18 11:04 04/15/18 11:04 04/15/18 11:04 04/15/18 11:04 04/15/18 11:04 Exam: General: Patient is alert, oriented, no acute distress, Head: atraumatic, normocephalic, Eye: normal appearance, PERRL, no scleral icterus, no conjunctival injection ENT: mucous membranes moist, normal external ear exam Neck: normal inspection, trachea midline, full ROM, no carotid bruits Chest: normal inspection, symmetric chest rise Respiratory: Good respiratory effort. Bilateral breath sounds are clear without wheezing, crackles, or rhonchi. Cardiovascular: Regular rate and rhythm. s1 and s2 No clicks, rubs, gallops, or murmors. Abdomen: Bowel sounds present normoactive x-4 quadrants. Abdomen is soft, nondistended. Diffusely tender on palpation,- improved No guarding or rebound. No organomegaly noted, obese musculoskeletal: Spontaneously moving all extremities. no edema, no calf tenderness Skin: warm, dry, intact. Neuro: Alert and oriented x4. No focal deficit Psych: Patient's affect is normal - Assessment and Plan (1) Sepsis Current Visit: Yes Status: Acute Assessment and Plan: Sepsis secondary to severe C. difficile colitis As evidenced by tachycardia , fever ( resolved) and leukocytosis- trending down Blood cultures obtained in the emergency departmentno growth to date Lactic acid within normal limit We will continue vancomycin by mouth and metronidazole (2) Clostridium difficile colitis Current Visit: Yes Status: Acute Assessment and Plan: Abdominal pain and diarrhea secondary to severe C. difficile colitis. CT abdomen and pelvis with pancolitis. on oral vancomycin - Rx was provided to caser up pending insurance authorization Diet has been increased as per surgery Surgery and ID on board CT abdomen and pelvis IMPRESSION: Diffuse colonic wall thickening and pericolonic inflammatory changes is consistent with pancolitis. Findings are likely infectious or inflammatory in etiology. (3) Hypertension Current Visit: No Status: Chronic Assessment and Plan: restarted home medications (4) Smoker Current Visit: Yes Status: Acute Assessment and Plan: Nicotine patch provided. Was counseled (5) Hypokalemia Current Visit: Yes Status: Resolved Assessment and Plan: Resolved (6) Hypocalcemia Current Visit: Yes Status: Resolved (7) Hypophosphatemia Current Visit: Yes Status: Resolved (8) Hypomagnesemia Current Visit: Yes Status: Resolved (9) DVT prophylaxis Current Visit: Yes Status: Acute Assessment and Plan: scds and heparin sc - Time Spent with Patient Total time spent is greater than 50% in coordination of care (as documented) at patient's floor/unit and/or counseling patient: Internal Medicine: Result - Labs CBC & Chem 7: 04/15/18 04:49 04/15/18 04:49 Labs: Short CBC 04/15/18 Range/Units 04:49 WBC 17.1 H (4.3-11.1) K/mcL Hgb 12.0 (11.5-15.4) g/dL Hct 35.2 L (35.3-44.9) % Plt Count 355 (140-400) K/mcL BMP 04/15/18 04:49 Sodium 138 Potassium 4.0 Chloride 112 H Carbon Dioxide 18 L BUN 3 L Creatinine 0.55 L Glucose 112 H Calcium 8.3 L - ABG Interpretation ABG results: PT/INR, D-dimer PT 16.5 Seconds (9.4-12.1) H 04/11/18 07:36 Consult Discharge Plan - Plan Referrals: Sophia Sawant MD [Partnered Physician] - Ariadna Flowers MD [Partnered Physician] - 04/22/18 1:00 pm Prescriptions: Vancomycin Oral Soln [Firvanq] 125 mg PO QID 10 Days #40 udc (1) Sepsis Qualifiers: Sepsis type: sepsis due to unspecified organism Qualified Code(s): A41.9 - Sepsis, unspecified organism (3) Hypertension Qualifiers: Hypertension type: essential hypertension Qualified Code(s): I10 - Essential (primary) hypertension
[2018-04-15] MEDS: Nicotine 14 MG PATCH.TD24 TD SCH (21:42)
[2018-04-15] MEDS: Latanoprost 2.5 ML BOTTLE BOTH EYES SCH (21:43)
[2018-04-15] MEDS: Gabapentin 100 MG CAPSULE PO SCH (21:44)
[2018-04-15] MEDS: hydrOXYzine pamoate 25 MG CAPSULE PO SCH (21:44)
[2018-04-16] MEDS: OXYCODONE Oral CONC 10 MG/0.5 ML ORAL.SYG SL PRN (00:42)
[2018-04-16 04:07] LABS: Hematocrit 38.2 % (35.3-44.9); Hemoglobin 12.8 g/dL (11.5-15.4); Mean Corpuscular HGB Conc 33.5 g/dL (31.6-35.5); Mean Corpuscular Hemoglobin 30.1 pg (28.0-33.3); Mean Corpuscular Volume 89.9 fL (83.0-100.0); Mean Platelet Volume 10.1 fL (9.4-12.4); Platelet Count 409 K/mcL (140-400); Red Blood Count 4.25 M/mcL (3.82-4.97); Red Cell Distribution Width 14.6 % (11.5-14.5)
[2018-04-16 04:21] LABS: BUN/Creatinine Ratio 11 (6-26); Blood Urea Nitrogen 7 mg/dL (8-23); Calcium 8.7 mg/dL (8.6-10.3); Carbon Dioxide 23 mEq/L (23-29); Chloride 108 mEq/L (98-107); Glucose 91 mg/dL (70-105); Magnesium 1.8 mg/dL (1.6-2.6); Osmolality,Calculated 286 (280-300); Phosphorous 4.4 mg/dL (2.7-4.5); Potassium 4.6 mEq/L (3.5-5.1); Sodium 139 mEq/L (136-145); eGFR For Non-African Americans > 60 (> 60)
[2018-04-16] MEDS: *HR* Heparin 5,000 UNIT/ML VIAL SQ SCH (05:14)
[2018-04-16 07:29] VITALS: BP 167/101
[2018-04-16] MEDS: Lisinopril 20 MG TABLET PO SCH (08:01)
[2018-04-16] MEDS: Vancomycin Oral Soln 125 MG/2.5 ML UDC PO SCH ×2 (08:02→13:33)
[2018-04-16] MEDS: NEOMYCIN OP SCH (08:03)
[2018-04-16] MEDS: POLYMYXIN B OP SCH (08:03)
[2018-04-16] MEDS: HYDROCORTISONE OP SCH (08:03)
[2018-04-16] MEDS: Cyclosporine [Restasis] OP SCH (08:03)
--- NOTE | 2018-04-16 10:33 | Physician Discharge Referral ---
Home Health/Hosp Referral Info Transfer to: Home Health Provider in Charge Post Discharge: PCP - Diagnosis (1) Sepsis Priority: Primary Status: Acute (2) Clostridium difficile colitis Priority: Secondary Status: Acute (3) Hypertension Priority: Secondary Status: Chronic (4) Smoker Priority: Secondary Status: Acute (5) Hypokalemia Priority: Secondary Status: Resolved (6) Hypocalcemia Priority: Secondary Status: Resolved (7) Hypophosphatemia Priority: Secondary Status: Resolved (8) Hypomagnesemia Priority: Secondary Status: Resolved (9) DVT prophylaxis Priority: Secondary Status: Acute - Respiratory Orders Smoking Cessation: Smoking cessation has been advised. For more information, call the [place] [employer] Quit Line at 0-125-GLTF-NOW. - Services Needed Following services are medically necessary services: Nursing, Home Health Aide, Physical Therapy - Transfer Medications Prescriptions: Vancomycin Oral Soln [Firvanq] 125 mg PO QID 10 Days #40 [facility] [place] Home Medications: Albuterol Sulfate [Ventolin Hfa] 18 gm IH DAILY PRN 10/19/17 [History] HydrOXYzine Pamoate [Vistaril] 100 mg PO HS PRN 10/19/17 [History] Hydrocodone Bit/Homatrop Me-Br [Hydrocodone-Homatropine 5-1.5] 1 each PO TID PRN 10/19/17 [History] Latanoprost [Xalatan] 2.5 ml OP DAILY 10/19/17 [History] Metoprolol [Lopressor] 75 mg PO BID 10/19/17 [History] [place]-3 Fatty Acids [Fish Oil] 300 mg PO DAILY 10/19/17 [History] Ondansetron HCl [Zofran] 4 mg PO Q8HR PRN #90 tab 10/19/17 [Rx] Esomeprazole Magnesium [Nexium] 40 mg PO DAILY 04/10/18 [History] Aspirin [Lo-Dose Aspirin EC] 81 mg PO DAILY 04/13/18 [History] Aspirin/Acetaminophen/Caffeine [Excedrin Extra Strength Caplet] 1 each PO DAILY PRN 04/13/18 [History] Fluticasone Propionate Nasal [Flonase] 50 mcg NS DAILY 04/13/18 [History] Gabapentin [Neurontin] 100 mg PO BID 04/13/18 [History] Lifitegrast [Xiidra] 1 drop OP BID PRN 04/13/18 [History] Loratadine/Pseudophed (12 HR) [Claritin D (12HR)] 1 each PO DAILY PRN 04/13/18 [History] Nitroglycerin [Nitrostat] 0.4 mg SL AD PRN 04/13/18 [History] Turmeric Root Extract [Turmeric] 500 mg PO DAILY PRN 04/13/18 [History] Vancomycin Oral Soln [Firvanq] 125 mg PO QID 10 Days #40 [facility] 04/14/18 [Rx] Allergies/Adverse Reactions: Allergy/AdvReac Type Severity Reaction Status Date / Time duloxetine [From Cymbalta] Allergy Drowsy Verified 04/13/18 11:35 iodine Allergy Hives Verified 04/13/18 11:35 morphine Allergy hallucinati Verified 04/13/18 11:35 ons pregabalin [From Lyrica] Allergy decreased Verified 04/13/18 11:35 awareness Hydromorphone [From Dilaudid] AdvReac Hypotension Verified 04/13/18 11:35 rosuvastatin [From Crestor] AdvReac Muscle Pain Verified 04/13/18 11:35 Certification: Further, I certify that my clinical findings support that this patient is homebound (i.e. absences from home require considerable and taxing effort and are for medical reasons or orthodoxy services or infrequently or short duration when for other reasons) because: Homebound Reason: Patient requires assistance of a person or device to safely leave home Attestation: My signature below is to certify that this patient is under my care and that I, or nurse practitioner, or a physician's technical administrative assistant working with me, has a fa ce-to-face encounter with this patient.
--- NOTE | 2018-04-16 10:42 | Discharge Summary ---
- NOTES TO OUTPATIENT PROVIDER Notes to Outpatient Provider: emmanuel arias with PCP to repeat CBC and BMP for electrolytes and white count. follow up with GI in 2 weeks for colonscopy Orders not resulted at time of discharge: Pending orders 04/17/18 04:00 Basic Metabolic Panel AM 0400 Complete Blood Count w/o Diff [HEME] AM 0400 Magnesium AM 0400 Phosphorous AM 0400 Date of Encounter: 04/16/18 Time of Encounter: 10:33 - Discharge Diagnosis (1) Sepsis Priority: Primary Status: Acute Qualifiers: Sepsis type: sepsis due to unspecified organism Qualified Code(s): A41.9 - Sepsis, unspecified organism (2) Clostridium difficile colitis Priority: Secondary Status: Acute (3) Hypertension Priority: Secondary Status: Chronic Qualifiers: Hypertension type: essential hypertension Qualified Code(s): I10 - Essential (primary) hypertension (4) Smoker Priority: Secondary Status: Acute (5) Hypokalemia Priority: Secondary Status: Resolved (6) Hypocalcemia Priority: Secondary Status: Resolved (7) Hypophosphatemia Priority: Secondary Status: Resolved (8) Hypomagnesemia Priority: Secondary Status: Resolved (9) DVT prophylaxis Priority: Secondary Status: Acute Hospital course: "Ruma Price is a 62 year old woman with a history of rheumatoid arthritis and systemic lupus erythematosus who presents to the ER with complaint of diarrhea. She reports diarrhea on and off for the past 3 months which commenced after a course of antibiotics she took for parotitis. More recently she has been treated for sinusitis with multiple antibiotic courses and for the past 3 days noticed an exacerbation in her diuretic depositions now having abdominal cramping, fever and chills. She describes diarrhea as watery in consistency and yellow in color. She acknowledges having taken ciprofloxacin and amoxicillin clavulanate recently but states there was a third which she cannot remember. In the ER she was seen to have a white count of 39,000, tachycardic and has been febrile. She was started on oral vancomycin due to concern for C. difficile associated diarrhea. Unfortunately she was not able to produce any stool stating that she took multiple tablets of Imodium and hydrocodone therefore her last bowel movement was before arrival to the ER." Patient presented secondary to above presentation and was admitted for severe C. difficile. CT abdomen and pelvis showed pancolitis. Surgery was consulted along with infectious disease and she was started on oral vancomycin, IV metronidazole and vancomycin enemas. IV metronidazole and vancomycin enema was discontinued after her improvement and she was to continue with oral vancomycin for a total of 14 days. Prescription was provided and was Scott checked with insurance medications manager lsw and was provided for the patient at bedside. She her number of bowel movements decreased to one formed stool on 04/16. Her abdominal pain nearly resolved by discharge date. Her diet was gradually increased throughout hospitalization and she was able to tolerate regular diet without any nausea, vomiting or abdominal pain. She understands that she will need to follow up with GI for colonoscopy once she is finished with her antibiotics. she was cleared as for discharge by infectious disease. she understands to go to the closest emergency department if she develops worsening abdominal pain or diarrhea again I discussed hand hygiene with the patient for her and her close contacts and she understands. Electrolytes followed and remained stable. Her PCP to follow CBC for white blood cell count in addition to electrolytes in one week. I counseled her extensively on smoking cessation and she understands. Discharge discussed with: patient, nurse, lean process deployment consultant Time spent discussing smoking cessation with patient: more than 10 minutes - Time Spent with Patient Total time spent providing and/or coordinating discharge services: Greater than 30 minutes (45) - Discharge Medications Prescriptions: Nicotine Patch [Nicoderm] 14 mg TD HS #30 [id number] Vancomycin Oral Soln [Firvanq] 125 mg PO QID 10 Days #40 [facility] [place] Home Medications: Albuterol Sulfate [Ventolin Hfa] 18 gm IH DAILY PRN 10/19/17 [History] HydrOXYzine Pamoate [Vistaril] 100 mg PO HS PRN 10/19/17 [History] Hydrocodone Bit/Homatrop Me-Br [Hydrocodone-Homatropine 5-1.5] 1 each PO TID PRN 10/19/17 [History] Latanoprost [Xalatan] 2.5 ml OP DAILY 10/19/17 [History] Metoprolol [Lopressor] 75 mg PO BID 10/19/17 [History] [place]-3 Fatty Acids [Fish Oil] 300 mg PO DAILY 10/19/17 [History] Ondansetron HCl [Zofran] 4 mg PO Q8HR PRN #90 tab 10/19/17 [Rx] Esomeprazole Magnesium [Nexium] 40 mg PO DAILY 04/10/18 [History] Aspirin [Lo-Dose Aspirin EC] 81 mg PO DAILY 04/13/18 [History] Aspirin/Acetaminophen/Caffeine [Excedrin Extra Strength Caplet] 1 each PO DAILY PRN 04/13/18 [History] Fluticasone Propionate Nasal [Flonase] 50 mcg NS DAILY 04/13/18 [History] Gabapentin [Neurontin] 100 mg PO BID 04/13/18 [History] Lifitegrast [Xiidra] 1 drop OP BID PRN 04/13/18 [History] Loratadine/Pseudophed (12 HR) [Claritin D (12HR)] 1 each PO DAILY PRN 04/13/18 [History] Nitroglycerin [Nitrostat] 0.4 mg SL AD PRN 04/13/18 [History] Turmeric Root Extract [Turmeric] 500 mg PO DAILY PRN 04/13/18 [History] Vancomycin Oral Soln [Firvanq] 125 mg PO QID 10 Days #40 [facility] 04/14/18 [Rx] Nicotine Patch [Nicoderm] 14 mg TD HS #30 patch.[id number] 04/16/18 [Rx] Allergies/Adverse Reactions: Allergy/AdvReac Type Severity Reaction Status Date / Time duloxetine [From Cymbalta] Allergy Drowsy Verified 04/13/18 11:35 iodine Allergy Hives Verified 04/13/18 11:35 morphine Allergy hallucinati Verified 04/13/18 11:35 ons pregabalin [From Lyrica] Allergy decreased Verified 04/13/18 11:35 awareness Hydromorphone [From Dilaudid] AdvReac Hypotension Verified 04/13/18 11:35 rosuvastatin [From Crestor] AdvReac Muscle Pain Verified 04/13/18 11:35 Date of admission: 04/10/18 20:46 Primary care physician: Amador Jennings MD Consults: 04/11/18 08:12 Consult to Surgery [CONS] Routine Consulting Provider: Surgery [facility] Reason for Consult: bella colits secondary to Cdif Call Completed: No 04/12/18 07:24 Consult to Infectious Diseases [CONS] Routine Consulting Provider: Infectious Disease [facility] Reason for Consult: severe Cdif with bella colitis Call Completed: No 04/13/18 12:05 Consult to Occupational Therapy [CONS] Routine Comment: Evaluate, develop and implement POC Reason for Consult: discharge planning Does patient have active BEDREST order?: No Is patient medically & hemodynamically stable?: Yes Patient assessed for mobility or mobilized this visit?: Yes Consult to Physical Therapy [CONS] Routine Comment: Evaluate, develop and implement POC Reason for Consult: discharge planning Does patient have active BEDREST order?: No Is patient medically & hemodynamically stable?: Yes Patient assessed for mobility or mobilized this visit?: Yes - Constitutional Vitals: Temp Pulse Resp BP Pulse Ox 99.1 F 106 16 167/101 93 04/16/18 07:25 04/16/18 07:45 04/16/18 07:25 04/16/18 07:25 04/16/18 07:25 Exam: General: Patient is alert, oriented, no acute distress, Head: atraumatic, normocephalic, Eye: normal appearance, PERRL, no scleral icterus, no conjunctival injection ENT: mucous membranes moist, normal external ear exam Neck: normal inspection, trachea midline, full ROM, no carotid bruits Chest: normal inspection, symmetric chest rise Respiratory: Good respiratory effort. Bilateral breath sounds are clear without wheezing, crackles, or rhonchi. Cardiovascular: Regular rate and rhythm. s1 and s2 No clicks, rubs, gallops, or murmors. Abdomen: Bowel sounds present normoactive x-4 quadrants. Abdomen is soft, nondistended. Diffusely tender on palpation,- improved No guarding or rebound. No organomegaly noted, obese musculoskeletal: Spontaneously moving all extremities. no edema, no calf tenderness Skin: warm, dry, intact. Neuro: Alert and oriented x4. No focal deficit Psych: Patient's affect is normal - Patient Status Disposition: Home Health Service Condition: Good Functional capacity at discharge: independent ambulation Overall status at discharge: patient is progressing back to baseline - Discharge Instructions Follow Up With: Sophia Sawant MD [Partnered Physician] - Ariadna Flowers MD [Partnered Physician] - 04/22/18 1:00 pm - Diet and Activity Activity: increase activity as tolerated Diet: low fat, low cholesterol (dairy free until finsied with Antibiotics )
[2018-04-16] MEDS: Fluticasone Propionate Nasal 50 MCG/SPRAY BOTTLE NS SCH (13:32)
== END 2018-04-16 14:00 | disposition home health service (06) | DRG 872 ==
LOC: 3ANU 14:48 → EMEROOARM 14:48 → 3ANU 18:20 → SUATTDRO 20:46 → 2NNU 04-11 13:34
PROVIDERS: ADMIT Internal Medicine; ATTEND Internal Medicine

== ENCOUNTER 2020-01-07 13:13 | Observation (INO) ==
[2020-01-07 13:49] LABS: Bilirubin,Urine Small (Negative); Blood,Urine Large (Negative); Clarity,Urine Clear (Clear); Color,Urine Yellow (Yellow); Glucose,Urine (UA) Normal (Normal); Ketones,Urine Negative (Negative); Leukocyte Esterase,Urine Small (Negative); Nitrite,Urine Negative (Negative); PH,Urine 5.5 pH Units (5.0-8.0); Protein,Urine 30 mg/dL (Neg-Trace); Specific Gravity,Urine 1.025 (1.010-1.025); Urobilinogen,Urine Normal (Normal)
[2020-01-07 13:55] LABS: Bacteria,Urine Present per hpf (None-Few); Squamous Epithelial Cell,Urine Present per hpf (None-Few); Transitional Epi Cells,Urine Present per hpf (None-Few)
[2020-01-07] MEDS ORDERED: *HR* FentaNYL (PF) 100 MCG/2 ML VIAL IVP ONE (13:55)
[2020-01-07 13:56] LABS: Amorphous Sediment,Urine Present per hpf (None-Few); RBC,Urine Present per hpf (0-3); WBC,Urine Present per hpf (0-3)
[2020-01-07 14:04] LABS: Basophils % 0.4 %; Eosinophils # 0.1 K/mcL (0.0-0.6); Eosinophils % 0.9 %; Hematocrit 36.1 % (35.3-44.9); Hemoglobin 11.9 g/dL (11.5-15.4); Immature Granulocytes % 0.3 % (0-4); Lymphocytes # 2.7 K/mcL (0.6-4.6); Mean Corpuscular Hemoglobin 31.8 pg (28.0-33.3); Mean Corpuscular Volume 96.5 fL (83.0-100.0); Mean Platelet Volume 10.1 fL (9.4-12.4); Monocytes # 0.7 K/mcL (0.0-1.3); Monocytes % 6.7 %; Neutrophils # 6.2 K/mcL (1.6-8.9); Platelet Count 289 K/mcL (140-400); Red Blood Count 3.74 M/mcL (3.82-4.97); Red Cell Distribution Width 13.8 % (11.5-14.5); Segmented Neutrophils % 63.7 %; White Blood Count 9.8 K/mcL (4.3-11.1)
[2020-01-07 14:13] LABS: Prothrombin Time 11.6 Seconds (9.4-12.1)
[2020-01-07 14:16] LABS: Activated Partial Thrombo Time 51.9 Seconds (26.0-36.0)
[2020-01-07 14:25] LABS: Alanine Aminotransferase 67 Units/L (7-52); Albumin/Globulin Ratio 1.3 (1.1-2.2); Alkaline Phosphatase 68 Units/L (34-104); Amylase 44 Units/L (29-103); Aspartate Amino Transferase 18 Units/L (13-39); BUN/Creatinine Ratio 25 (6-26); Bilirubin,Indirect 0.4 mg/dL (0.0-1.0); Bilirubin,Total 0.4 mg/dL (0.3-1.0); Blood Urea Nitrogen 32 mg/dL (8-23); Calcium 9.2 mg/dL (8.6-10.3); Carbon Dioxide 24 mEq/L (23-29); Chloride 102 mEq/L (98-107); Glucose 124 mg/dL (70-105); Lipase 43 Units/L (11-82); Osmolality,Calculated 292 (280-300); Potassium 3.3 mEq/L (3.5-5.1); Sodium 137 mEq/L (136-145); Troponin I < 0.03 ng/mL (< 0.04); eGFR For African Americans 51 (> 60); eGFR For Non-African Americans 42 (> 60)
[2020-01-07] MEDS ORDERED: 0.9 % Sodium Chloride 1,000 ML IVC ONE (16:18)
[2020-01-07] MEDS ORDERED: Ondansetron 4 MG/2 ML VIAL IVP PRN (16:41)
[2020-01-07] MEDS ORDERED: Naloxone 0.4 MG/ML INJ IVP PRN (16:41)
[2020-01-07] MEDS ORDERED: Potassium Chloride 40 MEQ, Lidocaine 1% 2 ML in 0.9 % Sodium Chloride 500 ML IVPB ONE (16:54)
[2020-01-07] MEDS: 0.9 % Sodium Chloride 1,000 ML IVC SCH (18:59)
[2020-01-07] MEDS: Pantoprazole 40 MG VIAL IVP SCH (19:00)
[2020-01-07] MEDS: Sucralfate 1 GM TABLET PO SCH ×2 (19:00→20:53)
[2020-01-07] MEDS: Metoprolol 100 MG TABLET PO SCH (20:59)
[2020-01-07] MEDS ORDERED: Gabapentin 100 MG CAPSULE PO SCH (21:00)
[2020-01-07] MEDS ORDERED: Latanoprost 2.5 ML BOTTLE BOTH EYES SCH (21:00)
[2020-01-07] MEDS ORDERED: hydrOXYzine pamoate 25 MG CAPSULE PO PRN (21:00)
[2020-01-08] MEDS: 0.9 % Sodium Chloride 1,000 ML IVC SCH (03:26)
[2020-01-08] MEDS: Pantoprazole 40 MG VIAL IVP SCH (05:09)
[2020-01-08] MEDS: Sucralfate 1 GM TABLET PO SCH ×2 (07:29→12:09)
[2020-01-08] MEDS: Metoprolol 100 MG TABLET PO SCH (09:00)
[2020-01-08 10:44] VITALS: BP 118/68
[2020-01-08 11:46] LABS: Basophils % 0.3 %; Eosinophils # 0.1 K/mcL (0.0-0.6); Eosinophils % 1.2 %; Hematocrit 27.6 % (35.3-44.9); Hemoglobin 8.6 g/dL (11.5-15.4); Immature Granulocytes % 0.1 % (0-4); Lymphocytes # 3.3 K/mcL (0.6-4.6); Lymphocytes % 34.9 %; Mean Corpuscular HGB Conc 31.2 g/dL (31.6-35.5); Mean Corpuscular Hemoglobin 30.7 pg (28.0-33.3); Mean Corpuscular Volume 98.6 fL (83.0-100.0); Mean Platelet Volume 10.2 fL (9.4-12.4); Monocytes # 0.6 K/mcL (0.0-1.3); Monocytes % 6.4 %; Neutrophils # 5.3 K/mcL (1.6-8.9); Platelet Count 247 K/mcL (140-400); Red Cell Distribution Width 13.6 % (11.5-14.5); Segmented Neutrophils % 57.1 %; White Blood Count 9.3 K/mcL (4.3-11.1)
[2020-01-08 12:05] LABS: BUN/Creatinine Ratio 21 (6-26); Blood Urea Nitrogen 16 mg/dL (8-23); Calcium 7.8 mg/dL (8.6-10.3); Carbon Dioxide 22 mEq/L (23-29); Chloride 113 mEq/L (98-107); Glucose 93 mg/dL (70-105); Magnesium 1.7 mg/dL (1.6-2.6); Osmolality,Calculated 287 (280-300); Phosphorous 2.4 mg/dL (2.7-4.5); Potassium 3.8 mEq/L (3.5-5.1); Sodium 138 mEq/L (136-145); eGFR For African Americans > 60 (> 60); eGFR For Non-African Americans > 60 (> 60)
== END 2020-01-08 14:45 | disposition home or self-care (01) ==
LOC: 3ANU 13:13 → EMEROOARM 13:13 → 3ANU 18:05
PROVIDERS: ADMIT Student in an Organized Health Care Education/Training Program; ATTEND Student in an Organized Health Care Education/Training Program